=== PATIENT | female | born 1960 | race Caucasian/White ===

== ENCOUNTER 2020-02-12 20:21 | Inpatient (IN) | payer BC, OTHER ==
--- NOTE | 2020-02-12 21:12 | RAD ---
CHEST ONE VIEW: 02/12/20 HISTORY: Shortness of breath. COMPARISON: None. FINDINGS: Heart size is enlarged. Abnormal opacity along the right cardiophrenic junction. This was not seen on prior examinations. IMPRESSION: Large right cardiophrenic opacity. This may reflect a hernia or less likely a mass. Nonemergent follo w-up chest CT recommended. POS: HOME
[2020-02-12 21:23] LABS: #Eosinphils 0.1 thou/uL (0.0-0.7); #Lymphocytes 0.7 thou/uL (1.20-3.40); #Monocytes 0.6 thou/uL (0.11-0.59); #Neutrophils 7.3 thou/uL (1.40-6.50); %Basophils 0.4 % (0.0-1.0); %Eosinophils 1.6 % (0.0-10.0); %Lymphocytes 7.6 % (21.0-51.0); %Monocytes 7.2 % (0.0-10.0); %Neutrophils 83.2 % (42.0-75.0); Hemoglobin 11.1 g/dL (12.0-16.0); Mean Corpuscular Hemoglobin 29.9 pg (27.0-31.0); Mean Corpuscular Volume 90.4 fL (78.0-98.0); Mean Platelet Volume 7.1 fL (7.4-10.4); Platelet Count 294 thou/uL (130-400); RBC Distribution Width 12.9 % (11.5-14.5); Red Blood Cell (RBC) Count 3.72 mill/uL (4.20-5.40); White Blood Cell (WBC) Count 8.8 thou/uL (4.8-10.8)
[2020-02-12 21:45] LABS: ALT (SGPT) 16 U/L (8-55); AST (SGOT) 25 U/L (5-34); Acetaminophen Less than 6.0 mcg/mL (10.0-30.0); Albumin 3.9 g/dL (3.5-5.0); Alcohol Less than 10 mg/dL (Less than 10); Alkaline Phosphatase 47 U/L (40-110); Anion Gap 13 mmol/L (10-20); BUN (Urea Nitrogen) 21 mg/dL (9.8-20.1); Bilirubin, Total 0.4 mg/dL (0.2-1.2); Calc. Creatinine Clearance 0 mL/min (70-130); Calcium 9.1 mg/dL (7.8-10.44); Carbon Dioxide 25 mmol/L (22-29); Chloride 104 mmol/L (98-107); Estimated GFR-MDRD 68; Glucose 165 mg/dL (70-105); Magnesium 1.8 mg/dL (1.6-2.6); Potassium 3.9 mmol/L (3.5-5.1); Protein, Total 6.9 g/dL (6.0-8.3); Salicylate Less than 8.0 mg/dL (15.0-30.0); Sodium 138 mmol/L (136-145)
--- NOTE | 2020-02-12 22:00 | CT ---
CT head noncontrast HISTORY: Headache. Hypertension. COMPARISON: 06/11/2005. FINDINGS: Centered at the right cerebellar hemisphere is a lobular heterogeneous hyperdense fluid col lection that measures up to 3.7 cm x 2.7 cm greatest diameters on the axial images. It result in significant expansion of the right cerebellar hemisphere incompletely effaces the fourth ventricle. M oderate amount of surrounding vasogenic edema. Diffuse effacement of the cerebellar sulci and basilar cisterns. Mild diffuse effacement of the cereb ral sulci. Ventricles are not significantly dilated. IMPRESSION : Large right dentate nucleus hypertensive hematoma with complete compression of the fourth ventricle a nd diffuse cerebellar/cerebral edema. Findings were called to Dr. Borden in the emergency department at 2154 hours. Code CR.
[2020-02-12] MEDS ORDERED: niCARdipine 20MG In NaCl 20 MG/200 ML BAG ONE (22:05)
[2020-02-12] MEDS ORDERED: Propofol 500 MG/50 ML VIAL ONE (22:05)
[2020-02-12] MEDS ORDERED: Propofol 1,000 MG/100 ML VIAL IV ONE (22:07)
[2020-02-12] MEDS ORDERED: Dexamethasone 10 MG/ML VIAL ONE (22:07)
[2020-02-12] MEDS ORDERED: fentaNYL Citrate/PF 2,000 MCG in Sodium Chloride 0.9% 60 ML IV SCH (22:15)
[2020-02-12] MEDS ORDERED: Rocuronium Bromide 10 MG/ML (10ML VIAL) ONE (22:29)
--- NOTE | 2020-02-12 23:53 | CON ---
DATE OF CONSULTATION: HISTORY OF PRESENT ILLNESS: Ms. Cary is a 59-year-old woman, who presents to [facility] via EMS for altered mental status and "hypertensive emergency." Reportedly, the patient had experienced headache and some slight confusion at home with systolic pressure measured at home in the 200s. This resulted in a call for the EMS service. The patient arrived and showed continued degradation of her neurologic status. CT scan was ordered, which revealed a 3.5 cm in greatest diameter central to right hemispheric cerebellar hemorrhage with compression of the fourth ventricle. She is not on any blood thinners other than 81 mg aspirin. She does take p.r.n. Toradol and meloxicam, which may contribute to this as well. Of significant note, she did have a heart catheterization yesterday for increasing dyspnea on exertion and chest pain with no prior identification of heart disease other than hypertension. She is morbidly obese at 296 pounds or 134 kg. She does take several diabetic medications as well as medications for hypertension. Upon my arrival at bedside, the patient has now been intubated secondary to concerns over guarding of her airway given premorbid state and altered mental status. It is told to me by ER physician that the patient had roughly 9 or 10 Turlock coma score before intubation as she was following some commands with her bilateral upper extremities. As she has been intubated, she recently received rocuronium and my examination is thus essentially at this point. Systolic pressures are up in the 200s and Cardene is being initiated as I am re-examining her. ASSESSMENT: Acute cerebellar hemorrhage. PLAN: The patient will be admitted to the hospitalist service. Neurosurgery's recommendation at this time is noninterventional, however, that could certainly change. She does have some very early signs of potential ventricular enlargement and this will need to be monitored very closely. We will put in an order for CT scan around 2 o'clock in the morning for comparison. She will need to be monitored in the ICU with q.1 hour neuro checks. Recommendation for systolic pressure control under 140. We will reassess patient's condition in the morning. Currently, patient's prognosis is guarded, though at this time looks likely poor. Job ID: [id number]
[2020-02-13] MEDS ORDERED: manNITOL 20% 0 ML ONE ×2 (00:18→01:38)
[2020-02-13] MEDS ORDERED: Dexamethasone 10 MG/ML VIAL ONE (00:20)
[2020-02-13] MEDS ORDERED: Mannitol 12.5 GM/50 ML ONE (00:23)
[2020-02-13] MEDS ORDERED: MANNITOL IV SCH (00:30)
[2020-02-13] MEDS ORDERED: ADMIXTURE FEE IV SCH (00:30)
--- NOTE | 2020-02-13 00:30 | PDOC.HHP ---
Hospitalist HPI - History of Present Illness Headache History of Present Illness: 59-year-old morbidly obese woman with a history of hypertension and diabetes mellitus presented to the emergency department with a complaint of sudden onset of headache with associated nausea and vomiting. EMS found her with a systolic blood pressure as high as 210. Patient was given nitro paste en route to the ED. Her systolic blood pressure in the ED was down to 179. Patient was still complaining of headache and stuporous on arrival. Head CT done in the emergency department demonstrated large right dentate nucleus hematoma with complete compression of the fourth ventricle, diffuse cerebral and cerebellar edema. She was subsequently intubated in the ED and started on mechanical ventilation. Neurosurgery was informed recommended IV dexamethasone, IV Keppra and nicardipine drip to bring systolic blood pressure down to a target of less than 160. She was sedated with propofol during my examination. Patient is admitted to ICU for further management. Hospitalist ROS - Review of Systems ROS unobtainable: due to mental status - Medication Medications: Cannot obtain and verify home medications due to altered mental status. Hospitalist History - Past Medical History Cardiac: reports: HTN Other Medical History: Obesity, DM type II - Past Surgical History Other Surgical History: Colon resection, cholecystectomy, hernia x4, right knee surgery, appendectomy. - Family History Other Family History: Unable to obtain due to AMS. - Social History Smoking Status: Never smoker Alcohol: reports: None - Exam General - other findings: Sedated Eye: PERRL, anicteric sclera ENT: normocephalic atraumatic, no oropharyngeal lesions, moist mucosa Neck: supple, no JVD Heart: RRR, no murmur, no gallops Respiratory: CTAB, no wheezes, no rales, no ronchi Gastrointestinal: soft, non-tender, non-distended, normal bowel sounds Gastrointestinal - other findings: Obese Extremities: no cyanosis, no edema Skin: normal turgor, no rashes Neurological - other findings: No facial droop. Unable to examine motor or sensation Musculoskeletal: normal tone Psychiatric - other findings: Unresponsive. Hospitalist Results - Labs Result Diagrams: 02/12/20 21:12 02/12/20 21:12 Lab results: WBC 8.8 thou/uL (4.8-10.8) 02/12/20 21:12 Hgb 11.1 g/dL (12.0-16.0) L 02/12/20 21:12 Hct 33.6 % (36.0-47.0) L 02/12/20 21:12 MCV 90.4 fL (78.0-98.0) 02/12/20 21:12 Plt Count 294 thou/uL (130-400) 02/12/20 21:12 Neutrophils % 83.2 % (42.0-75.0) H 02/12/20 21:12 Sodium 138 mmol/L (136-145) 02/12/20 21:12 Potassium 3.9 mmol/L (3.5-5.1) 02/12/20 21:12 Chloride 104 mmol/L (98-107) 02/12/20 21:12 Carbon Dioxide 25 mmol/L (22-29) 02/12/20 21:12 BUN 21 mg/dL (9.8-20.1) H 02/12/20 21:12 Creatinine 0.86 mg/dL (0.6-1.1) 02/12/20 21:12 Glucose 165 mg/dL (70-105) H 02/12/20 21:12 Calcium 9.1 mg/dL (7.8-10.44) 02/12/20 21:12 Total Bilirubin 0.4 mg/dL (0.2-1.2) 02/12/20 21:12 AST 25 U/L (5-34) 02/12/20 21:12 ALT 16 U/L (8-55) 02/12/20 21:12 Alkaline Phosphatase 47 U/L (40-110) 02/12/20 21:12 Troponin I 0.011 ng/mL (< 0.028) 02/12/20 21:12 Serum Total Protein 6.9 g/dL (6.0-8.3) 02/12/20 21:12 Albumin 3.9 g/dL (3.5-5.0) 02/12/20 21:12 Lipase 18 U/L (8-78) 02/12/20 21:12 Hospitalist H&P A/P - Problem (1) Intracerebral bleed Code(s): I61.9 - NONTRAUMATIC INTRACEREBRAL HEMORRHAGE, UNSPECIFIED Status: Acute (2) Cerebral edema Code(s): G93.6 - CEREBRAL EDEMA Status: Acute (3) Malignant hypertension Code(s): I10 - ESSENTIAL (PRIMARY) HYPERTENSION Status: Acute (4) Morbid obesity Code(s): E66.01 - MORBID (SEVERE) OBESITY DUE TO EXCESS CALORIES Status: Acute (5) DM type 2 (diabetes mellitus, type 2) Status: Acute (6) Altered mental status Code(s): R41.82 - ALTERED MENTAL STATUS, UNSPECIFIED Status: Acute - Plan Plan: Admit patient to the ICU. Neurosurgery consulted. IV dexamethasone, IV Keppra as recommended by neurosurgery. IV hydration with normal saline. Nicardipine drip with target systolic blood pressure of less than 160. Repeat CT head per neurosurgery. Neurochecks. Keep n.p.o.. Prognosis guarded.
[2020-02-13 00:57] LABS: Bilirubin Negative (Negative); Blood, Urine Negative (Negative); Clarity Clear (Clear); Glucose, Urine (Dipstick) Greater than 1000 mg/dL (Negative); Ketone, Urine Negative (Negative); Leukocyte Negative Leu/uL (Negative); Nitrite Negative (Negative); Protein, Urine (Dipstick) 30 mg/dL (Neg-Trace); RBC/HPF None Seen HPF (0-3); Specific Gravity, Urine 1.012 (1.002-1.036); Squamous Epithelial None Seen HPF (0-3); Urobilinogen Normal mg/dL (Less than 2); WBC/HPF 0-3 HPF (0-3)
[2020-02-13 00:58] LABS: Bacteria/HPF 1+ HPF (None Seen)
[2020-02-13 00:59] LABS: Amphetamine Not Detected (NotDetected); Barbiturates Screen Not Detected (NotDetected); Benzodiazepine Screen Not Detected (NotDetected); Cocaine Metabolite Screen Not Detected (NotDetected); Medtox Control Line Valid? VALID (VALID); Medtox Reader # READER 4; Methadone Not Detected (NotDetected); Methamphetamine Not Detected (NotDetected); Opiate Screen Not Detected (NotDetected); Oxycodone Screen Not Detected (NotDetected); Phencyclidine (PCP) Not Detected (NotDetected); THC/Cannabinoid Screen Not Detected (NotDetected); Tricyclic Screen Not Detected (NotDetected)
[2020-02-13] MEDS ORDERED: Midazolam HCl 5 mg/ml Vial ONE (01:30)
[2020-02-13] MEDS ORDERED: Propofol 1,000 MG/100 ML VIAL IV ONE (01:47)
[2020-02-13] MEDS ORDERED: Propofol BOLUS 1,000 MG/100 ML VIAL IV PRN (02:30)
[2020-02-13] MEDS ORDERED: Fentanyl BOLUS 250 ML IVPB PRN (02:30)
[2020-02-13] MEDS ORDERED: Morphine 2 MG/ML VIAL SLOW IVP PRN (02:30)
[2020-02-13] MEDS: levETIRAcetam in NS 1,000 MG in Premix Bag 1 BAG IVPB SCH ×2 (03:55→04:08)
[2020-02-13] MEDS: niCARdipine 50 MG in Sodium Chloride 0.9% 250 ML 230 ML IV SCH ×2 (04:12→21:44)
[2020-02-13 04:16] LABS: Anion Gap 14 mmol/L (10-20); BUN (Urea Nitrogen) 21 mg/dL (9.8-20.1); Calc. Creatinine Clearance 148 mL/min (70-130); Calcium 8.4 mg/dL (7.8-10.44); Carbon Dioxide 22 mmol/L (22-29); Chloride 101 mmol/L (98-107); Estimated GFR-MDRD 65; Glucose 179 mg/dL (70-105); Potassium 4.4 mmol/L (3.5-5.1); Sodium 133 mmol/L (136-145)
--- NOTE | 2020-02-13 07:16 | PRG ---
DATE OF SERVICE: 02/13/2020 Ms. Cary is a 59-year-old female with numerous medical comorbidities including hypertension and morbid obesity. She presented to the ER with altered mental status yesterday. A CT examination showed a posterior fossa hemorrhage. Despite its size, there is no evidence of ventriculomegaly. She was electively intubated secondary to her size and concerns over sleep apnea. She was admitted to the ICU. I visited with her this morning where she remained stable and intubated. Her blood pressure is now under control. Off the sedation, she does follow commands and open eyes. Repeat CT examination performed over the course of the evening shows stable hemorrhage with some edema. I can see the 4th ventricle and there is no significant ventriculomegaly at this point in time. I spoke to her and relayed to him all the information I have. The plan at this point in time is one of nonsurgical management. We will be mindful of hydrocephalus as well as the potential for brainstem compression. Job ID: [id number]
--- NOTE | 2020-02-13 07:22 | CT ---
PRELIMINARY REPORT/[facility]/EMERGENCY AFTER HOURS PROCEDURE: EXAM: CT Head Without Intravenous Contrast. CLINICAL HISTORY: Follow up Intracerebral hemorrhagic stroke TECHNIQUE: Axial computed tomography images of the head/brain without intravenous contrast. COMPARISON: 02/12/2020 FINDINGS: BRAIN: There is no significant change in the right cerebellar hemorrhagic stroke. This has changed l ittle in size measuring approximately 3.8 x 3 cm on this study. There is some surrounding edematous change within the cerebellar hemisphere on the right. This does cause compression on the f ourth ventricle. No new hemorrhage, hematoma or infarction.. VENTRICLES: Compression of the fourth ventricle from a hemorrhagic stroke in the right cerebellum. T he remaining ventricles have a normal appearance. ORBITS: The orbits are unremarkable. SINUSES AND MASTOIDS: The paranasal sinuses and mastoid air cells are clear. SOFT TISSUES: No significant facial or scalp soft tissue swelling evident. No radiopaque foreign body is seen. BONES: No acute skull fracture. IMPRESSION: No significant change in the appearance of a hemorrhagic stroke in the right cerebellar r egion. This does cause mass-effect upon the fourth ventricle which is unchanged. Minimal surrounding edema is again noted and unchanged. ELECTRONICALLY SIGNED BY: Jailyn Talley DO Feb 13, 2020 2:25:14 AM [facility] HAND FINAL REPORT HEAD CT WITHOUT CONTRAST: HISTORY: Follow-up hemorrhagic stroke. COMPARISON: 02/12/2020. FINDINGS: Hemorrhage: Redemonstration of an intraparenchymal hemorrhage centered in the medial right cerebellar hemisphere. Currently, hemorrhage measures 3.9 x 3.2 cm. Associated peripheral edema. No new intraparenchymal or intracranial hemorrhage. Brain parenchyma: Cortical butler-white matter differentiation is preserved. No mass effect or midline shift. Basilar cisterns are patent. Ventricular system: Mass effect upon the 4th ventricle. No evidence of hydrocephalus. Calvarium: Intact. Sinuses and mastoid air cells: Adequate aeration. IMPRESSION: 1. This report is in agreement with initial report by [facility]. 2. Stable intraparenchymal hemorrhage in the right cerebellum. Stable associated edema. Stable mass effect upon the 4th ventricle without hydrocephalus. Transcribed Date/Time: 02/13/2020 7:38 AM
[2020-02-13 08:40] LABS: Actual Bicarbonate (HCO3a) 20.9 mEq/L (22-28); Base Excess (BEa) -2.6 mEq/L (-2.0 to +3.0); CO2 Tension 32.9 mmHg (35.0-45.0); Calcium, Ionized (arterial) 1.13 mmol/L (1.12-1.30); Carboxyhemoglobin (COHb) 0.4 gm% (0.0-3.0); Hemoglobin (Hb) 14.7 g/dL (12.0-16.0); O2 Tension (PaO2), arterial 93.6 mmHg (80.0-100.0); pH, Arterial 7.42 (7.35-7.45)
[2020-02-13 08:42] LABS: Puncture Site RBA
[2020-02-13 08:43] LABS: ALV-art Gradient 435.675 mmHg (0-20)
[2020-02-13] MEDS ORDERED: Dextrose 5% in Water 1,000 ML IV PRN (09:44)
[2020-02-13] MEDS ORDERED: Dextrose 50% Abboject 50 ML SYRINGE SLOW IVP PRN (09:44)
--- NOTE | 2020-02-13 10:49 | PRG ---
DATE OF SERVICE: 02/13/2020 Ms. Cary was admitted last night for acute cerebellar hemorrhage with compression of the 4th ventricle. At that time, she was intubated, but also apparently not quite obtunded, but rather altered and quite lethargic before intubation this morning. However, she quickly follows commands extremities. She does not open her eyes when spoken to, but tries to keep them close when I look at her eyes. Pupils are equal, round, and reactive to light. Extraocular movements all appear to be intact. Systolic pressures remain mostly stable in the 140s which is excellent. She received one dose of mannitol overnight and had transient increase in her urinary output, but this was stabilized around 100 mL an hour. Overall, I have encouraged by how things appear today, but her hemorrhage is still quite serious given size and location. We will continue to monitor along. Repeat scan overnight reveals stable hemorrhage in size as well as stable ventricular size. She will likely need to continue to remain in the ICU given the propensity for these types of hemorrhages to cause more rapid neurologic decline. We will continue to maintain only a medical mode of management given her current circumstances. Job ID: [id number]
[2020-02-13 11:03] LABS: SARS-CoV-2 MS2 Positive; SARS-CoV-2 N Gene Negative; SARS-CoV-2 S Gene Negative; SARS-CoV-2 by NAA Not Detected (NotDetected); SARS-CoV-2 orf1ab Negative
[2020-02-13] MEDS: Propofol 1,000 MG/100 ML VIAL IV PRN ×2 (12:32→21:59)
--- NOTE | 2020-02-13 13:05 | PDOC.HOSPP ---
- Subjective Encounter Date: 02/13/20 Encounter Time: 07:30 Subjective: Patient seen for follow-up regarding intracranial bleed. She is intubated, could not complete review of systems. - Objective Vital Signs & Weight: Vital Signs (12 hours) Temp Pulse Resp Pulse Ox 02/13/20 12:31 70 02/13/20 12:00 22 H 02/13/20 10:00 22 H 02/13/20 08:33 69 02/13/20 08:00 22 H 99 02/13/20 07:00 98.6 F 02/13/20 06:00 22 H 02/13/20 04:00 22 H 02/13/20 02:45 98 02/13/20 02:20 98.3 F Weight Weight 299 lb 1.971 oz Most Recent Monitor Data Heart Rate from ECG 71 NIBP 133/64 NIBP BP-Mean 87 Respiration from ECG 22 SpO2 98 I&O: 02/12/20 02/13/20 02/14/20 06:59 06:59 06:59 Intake Total 295.0 Output Total 1890 550 Balance -1595.0 -550 Result Diagrams: 02/12/20 21:12 02/13/20 03:39 Additional Labs: Accuchecks 02/13/20 09:59 POC Glucose 147 H Labs and MAR reviewed by me EKG Reviewed by me: Yes (Normal sinus rhythm on telemetry) Hospitalist ROS - Review of Systems ROS unobtainable: due to endotracheal tube - Medication Medications: Active Medications Generic Name Dose Route Start Last Admin Trade Name Freq PRN Reason Stop Dose Admin Nicardipine HCl 50 mg/ Sodium 250 mls @ 0 mls/hr 02/13/20 04:00 02/13/20 04:12 Chloride IV 250 mls INF IRIS Administration Protocol As Directed Propofol 1,000 mg 02/13/20 02:30 02/13/20 12:32 Propofol 1,000 Mg/100 Ml Vial IV 03/14/20 02:30 1,000 mg INF PRN Administration TO ACHIEVE GOAL RASS Protocol - Exam General - other findings: Morbid obesity Eye: anicteric sclera Neck - other findings: ETT Heart: RRR Respiratory: CTAB Gastrointestinal: soft Skin: no rashes Psychiatric - other findings: Unable to assess Hosp A/P - Plan -Assessment (1) Intracerebral bleed Code(s): I61.9 - NONTRAUMATIC INTRACEREBRAL HEMORRHAGE, UNSPECIFIED Status: Acute (2) Cerebral edema Code(s): G93.6 - CEREBRAL EDEMA Status: Acute (3) Altered mental status Code(s): R41.82 - ALTERED MENTAL STATUS, UNSPECIFIED Status: Acute (4) Malignant hypertension Code(s): I10 - ESSENTIAL (PRIMARY) HYPERTENSION Status: Acute (5) Morbid obesity Code(s): E66.01 - MORBID (SEVERE) OBESITY DUE TO EXCESS CALORIES Status: Chronic (6) DM type 2 (diabetes mellitus, type 2) Status: Chronic - Plan Neurosurgery consulted. Continue IV dexamethasone, IV Keppra as recommended by neurosurgery. Continue nicardipine drip with target systolic blood pressure of less than 160. No significant change on repeat CT head Neurochecks. Prognosis guarded.
[2020-02-13] MEDS: fentaNYL Citrate/PF 2,000 MCG in Sodium Chloride 0.9% 60 ML IV SCH (13:16)
[2020-02-13] MEDS ORDERED: Rocuronium Bromide 10 MG/ML (10ML VIAL) ONE (13:47)
[2020-02-13] MEDS: Lorazepam 2 MG/ML VIAL SLOW IVP PRN ×3 (14:06→22:57)
[2020-02-13] MEDS: Gabapentin 300 MG CAP PO SCH ×2 (14:07→20:27)
[2020-02-13] MEDS: metFORMIN 500 MG TAB PO SCH (16:26)
--- NOTE | 2020-02-13 17:54 | CON ---
DATE OF CONSULTATION: 02/13/2020 HISTORY OF PRESENT ILLNESS: Jenna Cary is a 59-year-old female without a change in mental status according to the . An ambulance was called. It started with a terrible headache and nausea and vomiting. She was on the floor in the bathroom vomiting and then he got her a trash can. She sat on the commode and then her mental status changed. She subsequently has been intubated. She is found to have a hemorrhagic cerebellar CVA. She has a history of hypertension. Her says she is mosque about taking all her medicines as she is supposed to. PAST MEDICAL HISTORY: Remarkable for hypertension and diabetes as well as obesity. There is no history of sleep apnea. PAST SURGICAL HISTORY: Remarkable for colon surgery, cholecystectomy, multiple hernia repairs, knee surgery and appendectomy. FAMILY HISTORY: Negative for lung disease in early age. SOCIAL HISTORY: She is not a smoker or drinker. REVIEW OF SYSTEMS: Not obtainable. PHYSICAL EXAMINATION: VITAL SIGNS: Heart rate 67, blood pressure 126/73, respiratory rates in the 20s. HEENT: Pupils react, sclerae is anicteric. She is all over the bed if she is not sedated. LUNGS: Clear. HEART: Regular rhythm. S1 and S2 are normal. ABDOMEN: Soft and nontender. EXTREMITIES: Without asymmetry or edema. LABORATORY DATA: White count 8.8, hemoglobin 11.1, platelets 294. Sodium 133, potassium 4.4, chloride 101, bicarb 22, BUN 21, and creatinine 0.9, glucose has been from 147 to 297 today. Liver enzymes are normal. IMPRESSION: 1. Cerebellar hemorrhage. 2. Respiratory failure with mechanical ventilation. Would not attempt extubation until we are sure her neurological status is stable. I met with the answered all his questions. CRITICAL CARE TIME: 30 minutes. Job ID: [id number] MTDD
[2020-02-13] MEDS: HumaLOG 300 UNITS/3 ML VIAL SC PRN (21:48)
[2020-02-14] MEDS: Propofol 1,000 MG/100 ML VIAL IV PRN (05:56)
--- NOTE | 2020-02-14 08:00 | PDOC.HOSPP ---
- Subjective Encounter Date: 02/14/20 Encounter Time: 07:54 Subjective: intubated, sedated - Objective Vital Signs & Weight: Vital Signs (12 hours) Temp Pulse Resp BP Pulse Ox 02/14/20 07:41 54 L 128/65 02/14/20 06:00 22 H 02/14/20 04:00 98.6 F 22 H 96 02/14/20 02:00 22 H 02/14/20 01:00 98.8 F 02/14/20 00:00 22 H 02/13/20 22:00 22 H 02/13/20 20:00 98.8 F 22 H 96 Weight Admit Weight 299 lb Weight 300 lb 4.313 oz Most Recent Monitor Data Heart Rate from ECG 53 NIBP 116/65 NIBP BP-Mean 82 Respiration from ECG 22 SpO2 95 I&O: 02/13/20 02/14/20 02/15/20 06:59 06:59 06:59 Intake Total 295.0 1037 Output Total 1890 1795 Balance -1595.0 -758 Result Diagrams: 02/12/20 21:12 02/13/20 03:39 Additional Labs: Accuchecks 02/14/20 02/13/20 02/13/20 05:55 21:47 09:59 POC Glucose 118 H 154 H 147 H Hospitalist ROS - Medication Medications: Active Medications Generic Name Dose Route Start Last Admin Trade Name Freq PRN Reason Stop Dose Admin Gabapentin 1,200 mg 02/13/20 15:00 02/13/20 20:27 Gabapentin 300 Mg Cap PO 1,200 mg TID IRIS Administration Fentanyl Citrate 2,000 mcg/ 100 mls @ 0 mls/hr 02/13/20 02:30 02/13/20 13:16 Sodium Chloride IV 03/14/20 02:30 100 mls INF IRIS Administration Protocol Per Protocol Nicardipine HCl 50 mg/ Sodium 250 mls @ 0 mls/hr 02/13/20 04:00 02/13/20 21:44 Chloride IV 250 mls INF IRIS Administration Protocol As Directed Insulin Human Lispro 0 units 02/13/20 09:44 02/13/20 21:48 Humalog 300 Units/3 Ml Vial SC 2 unit .MILD SLIDING SCALE PRN Administration Mild Correctional Scale Lorazepam 2 mg 02/13/20 02:30 02/13/20 22:57 Lorazepam 2 Mg/Ml Vial SLOW IVP 03/14/20 02:30 2 mg Q1H PRN Administration Breakthrough agitation Metformin HCl 1,000 mg 02/13/20 17:00 02/13/20 16:26 Metformin 500 Mg Tab PO 1,000 mg BID-WM IRIS Administration Metoprolol Succinate 100 mg 02/13/20 21:00 02/13/20 20:27 Metoprolol Succinate Xl 100 Mg Tab PO 100 mg BID IRIS Administration Propofol 1,000 mg 02/13/20 02:30 02/14/20 05:56 Propofol 1,000 Mg/100 Ml Vial IV 03/14/20 02:30 1,000 mg INF PRN Administration TO ACHIEVE GOAL RASS Protocol - Exam Neck: no JVD Heart: RRR, no murmur Respiratory: CTAB Gastrointestinal: soft, non-distended, normal bowel sounds Extremities: 1+ LE edema Neurological - other findings: PERRL, DTRs hyperreflexic Hosp A/P (1) Cerebellar hemorrhage, acute Code(s): I61.4 - NONTRAUMATIC INTRACEREBRAL HEMORRHAGE IN CEREBELLUM Status: Acute (2) Hypertensive crisis Code(s): I16.9 - HYPERTENSIVE CRISIS, UNSPECIFIED Status: Acute (3) Encephalopathy acute Code(s): G93.40 - ENCEPHALOPATHY, UNSPECIFIED Status: Acute (4) DM type 2 (diabetes mellitus, type 2) Status: Acute Qualifiers: Diabetes mellitus fpc insulin use: without fpc use Diabetes mellitus complication status: without complication Qualified Code(s): E11.9 - Type 2 diabetes mellitus without complications - Plan on ventilator iv cardene for BP control maintenence fluid discuss with NS accu/ss
--- NOTE | 2020-02-14 08:39 | PRG ---
DATE OF SERVICE: 02/14/2020 Ms. Cary is on the third day of her hospital stay for acute intracerebellar hemorrhage with compression of 4th ventricle. She has over the first 24 hours made gradual improvement from a neurologic state. As of this morning, she is actually much, much better, is briskly following commands in all 4 extremities, opens her eyes when requested, fights the tube consistently, but has not reached a point where she is quite alert enough to consider extubation. Pressures have been in the 120s. Cardene was turned off this morning around 3 a.m. Urinary output has been in the 20s to 50s hourly and Kwan is still in place. From our perspective, we will continue to maintain the approach of nonsurgical management as she has continued to make steady neurologic progress in terms of her recovery, though when she will have the development of perihemorrhagic edema and will need to continue to be watched for possible development of hydrocephalus. We will hold off on any imaging unless she has a deterioration neurologically, but at this time, I am encouraged by the progress she has made in 48 hours. We will continue to follow along. Job ID: [id number]
[2020-02-14 08:48] LABS: #Eosinphils 0.1 thou/uL (0.0-0.7); #Lymphocytes 1.4 thou/uL (1.20-3.40); #Monocytes 0.8 thou/uL (0.11-0.59); #Neutrophils 6.9 thou/uL (1.40-6.50); %Basophils 0.3 % (0.0-1.0); %Eosinophils 0.6 % (0.0-10.0); %Lymphocytes 15.5 % (21.0-51.0); %Monocytes 8.3 % (0.0-10.0); %Neutrophils 75.4 % (42.0-75.0); Hemoglobin 10.2 g/dL (12.0-16.0); Mean Corpuscular HGB CONC 32.1 g/dL (32.0-36.0); Mean Corpuscular Hemoglobin 28.6 pg (27.0-31.0); Mean Corpuscular Volume 89.2 fL (78.0-98.0); Mean Platelet Volume 7.4 fL (7.4-10.4); Platelet Count 356 thou/uL (130-400); RBC Distribution Width 13.4 % (11.5-14.5); Red Blood Cell (RBC) Count 3.56 mill/uL (4.20-5.40); White Blood Cell (WBC) Count 9.1 thou/uL (4.8-10.8)
[2020-02-14] MEDS: Gabapentin 300 MG CAP PO SCH ×3 (08:48→20:20)
[2020-02-14] MEDS: Pioglitazone HCl 15 MG TAB PO SCH (08:48)
[2020-02-14] MEDS: FLUoxetine HCl 20 MG CAP PO SCH (08:49)
[2020-02-14] MEDS: Fenofibrate Nanocrystallized 145 MG TAB PO SCH (08:49)
[2020-02-14] MEDS: Sodium Chloride 0.9% 1,000 ML IV SCH ×2 (08:50→22:49)
[2020-02-14] MEDS: fentaNYL Citrate/PF 2,000 MCG in Sodium Chloride 0.9% 60 ML IV SCH (08:55)
[2020-02-14 08:57] LABS: Hemoglobin A1c 6.3 % (4.0-6.0)
[2020-02-14 09:10] LABS: Anion Gap 16 mmol/L (10-20); BUN (Urea Nitrogen) 40 mg/dL (9.8-20.1); Calc. Creatinine Clearance 107 mL/min (70-130); Carbon Dioxide 23 mmol/L (22-29); Chloride 105 mmol/L (98-107); Estimated GFR-MDRD 44; Glucose 113 mg/dL (70-105); Potassium 3.6 mmol/L (3.5-5.1); Sodium 140 mmol/L (136-145)
[2020-02-14] MEDS: Bupropion 150 MG XL TAB PO SCH (10:12)
[2020-02-14] MEDS: metFORMIN 500 MG TAB PO SCH (12:18)
[2020-02-14] MEDS: hydrALAZINE 20 MG/ML VIAL SLOW IVP PRN (18:06)
[2020-02-14] MEDS: Labetalol HCl 100 MG/20 ML VIAL SLOW IVP PRN (20:13)
--- NOTE | 2020-02-14 20:19 | PRG ---
DATE OF SERVICE: 02/14/2020 SUBJECTIVE: Jenna Cary had spontaneous breathing trial today. Sedation was held with the exception of Precedex. She was cooperative with spontaneous breathing trial. She did well. She passed a leak test. OBJECTIVE: VITAL SIGNS: Blood pressure 165/86, heart rate in the 60s, respiratory rates in the teens. LUNGS: Clear. HEART: Regular rhythm. ABDOMEN: Soft. EXTREMITIES: Without asymmetry. LABORATORY DATA: White count 9.1, hemoglobin 10.2, platelets 356. Electrolytes are unremarkable. BUN 40, creatinine 1.25. IMPRESSION: Status post intubation for altered mental status. In reviewing the ER records, she had a Clyde Coma scale of 8 when she was intubated. They were worried that she would get worse, so they intubated her early. I felt it was reasonable to extubate her today to see how she did. She did well with an excellent cough after extubation. She is not having any stridor. She sleeps with CPAP at home, so we will place her on BiPAP here whenever she sleeps and p.r.n. Job ID: [id number]
[2020-02-14] MEDS ORDERED: Acetaminophen 325 MG TAB PO SCH (23:45)
[2020-02-15] MEDS: hydrALAZINE 20 MG/ML VIAL SLOW IVP PRN ×2 (00:59→11:09)
[2020-02-15] MEDS: niCARdipine 50 MG in Sodium Chloride 0.9% 250 ML 230 ML IV SCH ×4 (01:47→22:02)
[2020-02-15] MEDS: Labetalol HCl 100 MG/20 ML VIAL SLOW IVP PRN ×2 (03:03→12:12)
[2020-02-15] MEDS ORDERED: traMADol HCl 50 MG TAB PO SCH (04:00)
[2020-02-15 05:18] LABS: Band 4 % (5-11); Eosinophils 2 % (0-10); Hemoglobin 10.6 g/dL (12.0-16.0); Lymphocytes 14 % (21-51); MDiff Complete? YES; Mean Corpuscular HGB CONC 32.2 g/dL (32.0-36.0); Mean Corpuscular Hemoglobin 28.8 pg (27.0-31.0); Mean Corpuscular Volume 89.5 fL (78.0-98.0); Mean Platelet Volume 7.1 fL (7.4-10.4); Monocytes 6 % (0-10); Neutrophil 74 % (42-75); Platelet Count 358 thou/uL (130-400); Platelet Morphology Comment Appears Adequate; Red Blood Cell (RBC) Count 3.68 mill/uL (4.20-5.40); White Blood Cell (WBC) Count 9.1 thou/uL (4.8-10.8)
[2020-02-15 05:31] LABS: Anion Gap 17 mmol/L (10-20); BUN (Urea Nitrogen) 34 mg/dL (9.8-20.1); Calc. Creatinine Clearance 145 mL/min (70-130); Calcium 8.7 mg/dL (7.8-10.44); Carbon Dioxide 21 mmol/L (22-29); Chloride 106 mmol/L (98-107); Estimated GFR-MDRD 63; Glucose 133 mg/dL (70-105); Potassium 4.1 mmol/L (3.5-5.1); Sodium 140 mmol/L (136-145)
--- NOTE | 2020-02-15 07:53 | PRG ---
DATE OF SERVICE: 02/15/2020 Ms. Cary looks great this morning. She was extubated late yesterday. She is wearing a BiPAP mask. She is awake, alert, oriented, and follows commands well with all 4 extremities. We will keep her in the ICU until our respiratory colleagues feel she is safe to move out from a respiratory perspective. The Neurosurgical Service will continue to follow along loosely. I foresee no need for surgical intervention at this time. Job ID: [id number]
--- NOTE | 2020-02-15 07:54 | PDOC.HOSPP ---
- Subjective Encounter Date: 02/15/20 Encounter Time: 07:53 Subjective: extubated, awake - Objective Vital Signs & Weight: Vital Signs (12 hours) Temp Pulse BP Pulse Ox 02/15/20 07:00 98.6 F 02/15/20 06:59 70 02/15/20 04:00 98.7 F 02/15/20 03:03 76 164/90 H 02/15/20 03:00 98.7 F 02/15/20 00:59 76 165/84 H 02/15/20 00:00 97.9 F 02/14/20 22:00 76 02/14/20 20:13 73 154/80 H 02/14/20 20:00 98.2 F 92 L Weight Admit Weight 299 lb Weight 300 lb 7.841 oz Most Recent Monitor Data Heart Rate from ECG 73 NIBP 143/76 NIBP BP-Mean 98 Respiration from ECG 12 SpO2 90 I&O: 02/14/20 02/15/20 02/16/20 06:59 06:59 06:59 Intake Total 1037 2945.6 Output Total 1795 1471 100 Balance -758 1474.6 -100 Result Diagrams: 02/15/20 04:50 02/15/20 04:50 Additional Labs: Accuchecks 02/15/20 02/14/20 02/14/20 00:17 17:03 11:23 POC Glucose 143 H 124 H 99 02/13/20 16:04 POC Glucose 137 H Radiology Reviewed by me: Yes (cxr- Bilat effusion vs infiltrate) Hospitalist ROS - Medication Medications: Active Medications Generic Name Dose Route Start Last Admin Trade Name Freq PRN Reason Stop Dose Admin Bupropion HCl 300 mg 02/14/20 09:00 02/14/20 10:12 Bupropion 150 Mg Xl Tab PO Not Given DAILY IRIS Diltiazem HCl 180 mg 02/14/20 09:00 02/14/20 09:13 Diltiazem Hcl Cd 180 Mg Capsule PO 180 mg DAILY IRIS Administration Fenofibrate 145 mg 02/14/20 09:00 02/14/20 08:49 Fenofibrate Nanocrystallized 145 Mg Tab PO 145 mg DAILY IRIS Administration Fluoxetine HCl 40 mg 02/14/20 09:00 02/14/20 08:49 Fluoxetine Hcl 20 Mg Cap PO 40 mg DAILY IRIS Administration Gabapentin 1,200 mg 02/13/20 15:00 02/14/20 20:20 Gabapentin 300 Mg Cap PO 1,200 mg TID IRIS Administration Hydralazine HCl 20 mg 02/14/20 16:15 02/15/20 00:59 Hydralazine 20 Mg/Ml Vial SLOW IVP 20 mg Q6H PRN Administration SBP GREATER THAN 160 Nicardipine HCl 50 mg/ Sodium 250 mls @ 0 mls/hr 02/13/20 04:00 02/15/20 01:47 Chloride IV 250 mls INF IRIS Administration Protocol As Directed Sodium Chloride 1,000 mls @ 75 mls/hr 02/14/20 08:15 02/14/20 22:49 Normal Saline 0.9% IV 1,000 mls .[id number] IRIS Administration Dexmedetomidine HCl 400 mcg/ 100 mls @ 0 mls/hr 02/14/20 12:00 02/14/20 12:42 Sodium Chloride IVPB 100 mls INF IRIS Administration Protocol Titrate Insulin Human Lispro 0 units 02/13/20 09:44 02/13/20 21:48 Humalog 300 Units/3 Ml Vial SC 2 unit .MILD SLIDING SCALE PRN Administration Mild Correctional Scale Labetalol HCl 10 mg 02/14/20 16:12 02/15/20 03:03 Labetalol Hcl 100 Mg/20 Ml Vial SLOW IVP 10 mg Q6H PRN Administration SBP Greater Than 180 Metoprolol Succinate 100 mg 02/13/20 21:00 02/14/20 20:21 Metoprolol Succinate Xl 100 Mg Tab PO 100 mg BID IRIS Administration Niacin 1,000 mg 02/14/20 09:00 02/14/20 08:49 Niacin Er 500 Mg Tab PO 1,000 mg DAILY IRIS Administration Pioglitazone HCl 30 mg 02/14/20 09:00 02/14/20 08:48 Pioglitazone Hcl 15 Mg Tab PO 30 mg DAILY IRIS Administration - Exam Neck: no JVD Heart: RRR, no murmur Respiratory - other findings: difficult exam, do not hear any post focal rales, etc Gastrointestinal: soft, non-distended, normal bowel sounds Extremities: 1+ LE edema Hosp A/P (1) Cerebellar hemorrhage, acute Code(s): I61.4 - NONTRAUMATIC INTRACEREBRAL HEMORRHAGE IN CEREBELLUM Status: Acute (2) Hypertensive crisis Code(s): I16.9 - HYPERTENSIVE CRISIS, UNSPECIFIED Status: Acute (3) Encephalopathy acute Code(s): G93.40 - ENCEPHALOPATHY, UNSPECIFIED Status: Acute (4) DM type 2 (diabetes mellitus, type 2) Status: Acute Qualifiers: Diabetes mellitus senior care insulin use: without termite inspector use Diabetes mellitus complication status: without complication Qualified Code(s): E11.9 - Type 2 diabetes mellitus without complications (5) PNA (pneumonia) Code(s): J18.9 - PNEUMONIA, UNSPECIFIED ORGANISM Status: Acute - Plan PT/OT iv cardene for BP control abnormal CXR- volume overload vs PNA discussed with stock pitcher Tx for PNA DC NS, ECHO, BNP accu/ss
--- NOTE | 2020-02-15 08:19 | RAD ---
XR Chest 1 View Portable History: Ventilated patient Comparison: Radiograph February 12, 2020 Findings: Large right and moderate left layering effusion. Heart size is enlarged. No pneumothorax. F ullness of the vascular pedicle. Impression: Enlarging pleural effusions.
[2020-02-15] MEDS: cefTRIAXone\\ROCEPHIN 2 GM in Sodium Chloride 0.9% 100 ML IVPB SCH (08:40)
[2020-02-15] MEDS: Bupropion 150 MG XL TAB PO SCH (08:41)
[2020-02-15] MEDS: Pioglitazone HCl 15 MG TAB PO SCH (08:42)
[2020-02-15] MEDS: FLUoxetine HCl 20 MG CAP PO SCH (08:42)
[2020-02-15] MEDS: Gabapentin 300 MG CAP PO SCH ×3 (08:43→20:01)
[2020-02-15] MEDS: Fenofibrate Nanocrystallized 145 MG TAB PO SCH (08:45)
[2020-02-15] MEDS: Ondansetron PF 4 MG/2 ML Vial IVP PRN ×2 (12:31→20:02)
[2020-02-15] MEDS: traMADol HCl 50 MG TAB PO PRN ×2 (14:07→20:03)
--- NOTE | 2020-02-15 14:27 | PRG ---
DATE OF SERVICE: 02/15/2020 SUBJECTIVE: Ms. Cary remains hemodynamically stable. She is adequately protecting her airway. She is in no distress. OBJECTIVE: VITAL SIGNS: Heart rate is in the 60s, blood pressure 153/85, respiratory rate is 20, oximetry is 100%. LUNGS: Clear. HEART: Regular rhythm. ABDOMEN: Soft. Her brought her CPAP up here. LABORATORY DATA: White count 9.1, hemoglobin 10.6, platelets 358. Electrolytes are unremarkable. Creatinine is 0.9. IMPRESSION: Respiratory failure after cerebellar bleed. She has a headache. We will need to watch for obstructive hydrocephalus. She can use her home CPAP with O2 titrated to a saturation of 90% to 94%. Job ID: [id number]
[2020-02-15] MEDS ORDERED: hydrALAZINE 25 MG TAB PO SCH (16:00)
[2020-02-15] MEDS: hydrALAZINE 25 MG TAB PO SCH (20:02)
[2020-02-16] MEDS: niCARdipine 50 MG in Sodium Chloride 0.9% 250 ML 230 ML IV SCH ×3 (01:31→10:22)
[2020-02-16 05:26] LABS: Anion Gap 15 mmol/L (10-20); BUN (Urea Nitrogen) 36 mg/dL (9.8-20.1); Calc. Creatinine Clearance 125 mL/min (70-130); Calcium 8.6 mg/dL (7.8-10.44); Carbon Dioxide 24 mmol/L (22-29); Chloride 104 mmol/L (98-107); Estimated GFR-MDRD 53; Glucose 156 mg/dL (70-105); Potassium 4.1 mmol/L (3.5-5.1); Sodium 139 mmol/L (136-145)
[2020-02-16 05:28] LABS: Band 5 % (5-11); Hemoglobin 10.9 g/dL (12.0-16.0); Lymphocytes 16 % (21-51); MDiff Complete? YES; Mean Corpuscular HGB CONC 31.6 g/dL (32.0-36.0); Mean Corpuscular Volume 91.7 fL (78.0-98.0); Mean Platelet Volume 8.5 fL (7.4-10.4); Neutrophil 79 % (42-75); Platelet Count 294 thou/uL (130-400); RBC Distribution Width 13.4 % (11.5-14.5); Red Blood Cell (RBC) Count 3.75 mill/uL (4.20-5.40); White Blood Cell (WBC) Count 11.1 thou/uL (4.8-10.8)
[2020-02-16] MEDS: Bupropion 150 MG XL TAB PO SCH (08:32)
[2020-02-16] MEDS: Gabapentin 300 MG CAP PO SCH ×3 (08:33→21:57)
[2020-02-16] MEDS: hydrALAZINE 25 MG TAB PO SCH ×3 (08:34→21:51)
[2020-02-16] MEDS: FLUoxetine HCl 20 MG CAP PO SCH (08:34)
--- NOTE | 2020-02-16 08:41 | PRG ---
DATE OF SERVICE: 02/16/2020 SUBJECTIVE: Ms. Cary used her home BiPAP last night, but has been able to remove it this morning. She states that she hurts all over, but this is apparently a chronic complaint. She had some vomiting last night, but reports thirst this morning. We will see if we can gradually get her onto some oral nutrition. She is still on Cardene for blood pressure control and similarly, we will try to get her onto oral therapy today. OBJECTIVE: VITAL SIGNS: Blood pressure today 146/77, heart rate is 65, saturation is in the mid 90s on both BiPAP and then onto nasal cannula at 5 L. GENERAL: She is awake, slightly sleepy, but arousable. She denies pain. NECK: Shows no adenopathy. She has decent strength and muscle symmetry bilaterally. LUNGS: Clear. HEART: Regular rate and rhythm. ABDOMEN: Obese. There is no organomegaly. EXTREMITIES: She has 1+ edema without cords. LABORATORY DATA: White count this morning 11,100, hemoglobin is 10.9, hematocrit of 34.4, platelet count 294,000. Electrolytes include sodium 139, potassium 4.1, chloride 104, CO2 is 24, BUN 36, creatinine 1.07. IMPRESSION: 1. Right cerebellar bleed. 2. Hypertension. 3. Obesity. BMI of 46. 4. Obstructive sleep apnea, on home CPAP therapy. PLAN: We will try to advance her diet as tolerated and get her onto oral regimen. It is unclear from the chart her regular medications and she cannot name them. We will try to get a list, but in the absence of that, we will start labetalol. She could be transferred to the floor if we were able to get her blood pressure adequately controlled. Job ID: [id number]
[2020-02-16] MEDS: cefTRIAXone\\ROCEPHIN 2 GM in Sodium Chloride 0.9% 100 ML IVPB SCH (08:42)
[2020-02-16] MEDS: Fenofibrate Nanocrystallized 145 MG TAB PO SCH (08:53)
[2020-02-16] MEDS: Pioglitazone HCl 15 MG TAB PO SCH (08:53)
[2020-02-16] MEDS: traMADol HCl 50 MG TAB PO PRN (08:55)
--- NOTE | 2020-02-16 08:57 | RAD ---
CHEST 1 VIEW: Date: 02/16/2020 INDICATION: History of intubation. COMPARISON: Prior exam dated 02/15/2020. FINDINGS: There is cardiomegaly with pulmonary vascular congestion. There is persistent bibasilar air space dis ease, right greater than left. No pneumothorax is evident. IMPRESSION: Stable exam. POS: BH
[2020-02-16] MEDS: Labetalol HCl 100 MG/20 ML VIAL SLOW IVP PRN (09:33)
[2020-02-16] MEDS ORDERED: Fioricet 325/50/40 mg Tablet PO SCH (11:45)
[2020-02-16] MEDS ORDERED: Fioricet 325/50/40 mg Tablet PO PRN (11:55)
[2020-02-16] MEDS: HumaLOG 300 UNITS/3 ML VIAL SC PRN (12:41)
[2020-02-16] MEDS: Ondansetron PF 4 MG/2 ML Vial IVP PRN ×2 (12:43→18:29)
--- NOTE | 2020-02-16 13:30 | CT ---
CT Brain WO Con: 02/16/2020 1:10 PM CLINICAL HISTORY: Follow-up intracranial hemorrhage. IMAGING TECHNIQUE: Multiple CT images were obtained of the brain without IV contrast. COMPARISON: February 13, 2020 FINDINGS: BRAIN: Evidence of acute infarct: None. Evidence of chronic ischemic change:None. Evidence of intracranial hemorrhage: The right cerebellar hemisphere intraparenchymal hemorrhage is largely stable when accounting for slight differences in technique. The hemorrhage measures approximately 4.4 x 3.2 cm where previously measured approximately 4.7 x 3.8 cm on the prior exam. Th ere is mild surrounding vasogenic edema and mass effect on the fourth ventricle that appears similar. Mild narrowing of the basilar cisterns appear similar. No hydrocephalus is evident. Evidence of brain volume loss:There is mild generalized cerebral atrophy. Evidence of midline shift: Third ventricle and septum pellucidum are midline. Ventricles: Normal. No hydrocephalus. SKULL: Intact. VISUALIZED PARANASAL SINUSES: Clear. MASTOID AIR CELLS: Clear. EXTRACRANIAL SOFT TISSUES: Normal. IMPRESSION: Stable CT examination of the brain. There is stable right cerebellar hemisphere intraparenchymal hem orrhage with surrounding vasogenic edema inducing mass effect on the fourth ventricle. There is some stable mild narrowing of the basilar cisterns, particularly the prepontine cistern. No hydroceph alus is present.
[2020-02-16] MEDS: Morphine 2 MG/ML VIAL SLOW IVP PRN ×2 (14:29→18:29)
--- NOTE | 2020-02-16 16:57 | PDOC.HOSPP ---
- Subjective Encounter Date: 02/16/20 Subjective: Patient is complaining of severe headache. - Objective Vital Signs & Weight: Vital Signs (12 hours) Pulse BP 02/16/20 14:24 65 118/44 L 02/16/20 09:33 70 143/54 H 02/16/20 08:34 66 125/66 Weight Admit Weight 299 lb Weight 306 lb 12.8 oz Most Recent Monitor Data Heart Rate from ECG 65 NIBP 129/67 NIBP BP-Mean 87 Respiration from ECG 14 SpO2 97 I&O: 02/15/20 02/16/20 02/17/20 06:59 06:59 06:59 Intake Total 2945.6 1732 Output Total 1471 1230 Balance 1474.6 502 Result Diagrams: 02/16/20 04:40 02/16/20 04:40 Additional Labs: Accuchecks 02/16/20 02/16/20 02/16/20 16:02 12:31 05:56 POC Glucose 109 H 155 H 133 H 02/15/20 02/15/20 21:01 16:50 POC Glucose 139 H 145 H Hospitalist ROS - Medication Medications: Active Medications Generic Name Dose Route Start Last Admin Trade Name Freq PRN Reason Stop Dose Admin Bupropion HCl 300 mg 02/14/20 09:00 02/16/20 08:32 Bupropion 150 Mg Xl Tab PO 300 mg DAILY IRIS Administration Diltiazem HCl 180 mg 02/14/20 09:00 02/16/20 08:32 Diltiazem Hcl Cd 180 Mg Capsule PO 180 mg DAILY IRIS Administration Fenofibrate 145 mg 02/14/20 09:00 02/16/20 08:53 Fenofibrate Nanocrystallized 145 Mg Tab PO 145 mg DAILY IRIS Administration Fluoxetine HCl 40 mg 02/14/20 09:00 02/16/20 08:34 Fluoxetine Hcl 20 Mg Cap PO 40 mg DAILY IRIS Administration Gabapentin 1,200 mg 02/13/20 15:00 02/16/20 14:23 Gabapentin 300 Mg Cap PO 1,200 mg TID IRIS Administration Hydralazine HCl 20 mg 02/14/20 16:15 02/15/20 11:09 Hydralazine 20 Mg/Ml Vial SLOW IVP 20 mg Q6H PRN Administration SBP GREATER THAN 160 Hydralazine HCl 50 mg 02/15/20 21:00 02/16/20 14:24 Hydralazine 25 Mg Tab PO 50 mg TID IRIS Administration Nicardipine HCl 50 mg/ Sodium 250 mls @ 0 mls/hr 02/13/20 04:00 02/16/20 10:22 Chloride IV 250 mls INF IRIS Administration Protocol As Directed Ceftriaxone Sodium 2 gm/ 100 mls @ 200 mls/hr 02/15/20 08:00 02/16/20 08:42 Sodium Chloride IVPB 100 mls Q24HR IRIS Administration Insulin Human Lispro 0 units 02/13/20 09:44 02/16/20 12:41 Humalog 300 Units/3 Ml Vial SC 2 unit .MILD SLIDING SCALE PRN Administration Mild Correctional Scale Labetalol HCl 10 mg 02/14/20 16:12 02/16/20 09:33 Labetalol Hcl 100 Mg/20 Ml Vial SLOW IVP 10 mg Q6H PRN Administration SBP Greater Than 180 Metoprolol Succinate 100 mg 02/13/20 21:00 02/16/20 08:33 Metoprolol Succinate Xl 100 Mg Tab PO 100 mg BID IRIS Administration Morphine Sulfate 2 mg 02/16/20 14:03 02/16/20 14:29 Morphine 2 Mg/Ml Vial SLOW IVP 2 mg Q1H PRN Administration Severe Pain (7-10) Niacin 1,000 mg 02/14/20 09:00 02/16/20 08:33 Niacin Er 500 Mg Tab PO 1,000 mg DAILY IRIS Administration Ondansetron HCl 4 mg 02/15/20 12:19 02/16/20 12:43 Ondansetron Pf 4 Mg/2 Ml Vial IVP 4 mg Q4H PRN Administration Nausea/Vomiting Pioglitazone HCl 30 mg 02/14/20 09:00 02/16/20 08:53 Pioglitazone Hcl 15 Mg Tab PO 30 mg DAILY IRIS Administration Tramadol HCl 50 mg 02/15/20 13:24 02/16/20 08:55 Tramadol Hcl 50 Mg Tab PO 50 mg Q6H PRN Administration Headache - Exam General Appearance: awake alert ENT: normocephalic atraumatic Neck: supple, no JVD Heart: RRR Respiratory: normal chest expansion, no tachypnea Neurological: cranial nerve grossly intact, no focal deficits Hosp A/P (1) Headache Code(s): R51.9 - HEADACHE, UNSPECIFIED Status: Acute (2) Cerebellar hemorrhage, acute Code(s): I61.4 - NONTRAUMATIC INTRACEREBRAL HEMORRHAGE IN CEREBELLUM Status: Acute (3) Cerebral edema Code(s): G93.6 - CEREBRAL EDEMA Status: Acute (4) DM type 2 (diabetes mellitus, type 2) Status: Acute Qualifiers: Diabetes mellitus terminal clerk insulin use: without terminal clerk use Diabetes mellitus complication status: without complication Qualified Code(s): E11.9 - Type 2 diabetes mellitus without complications - Plan The patient's blood pressure is now controlled on oral agents. She is complaining of severe headache and photosensitivity this morning. Repeat CT scan of the head did not show any worsening in her findings. Start oral Fioricet every 4 hours as needed for pain.
[2020-02-16] MEDS: hydrALAZINE 20 MG/ML VIAL SLOW IVP PRN (17:29)
[2020-02-16] MEDS: HYDROcodone/Acetaminophen 5/325 mg Tablet PO PRN (21:35)
[2020-02-17] MEDS: Labetalol HCl 100 MG/20 ML VIAL SLOW IVP PRN ×3 (05:00→16:58)
[2020-02-17] MEDS: Acetaminophen/Codeine 30-300mg Tablet PO PRN (05:01)
[2020-02-17 06:01] LABS: Anion Gap 16 mmol/L (10-20); BUN (Urea Nitrogen) 21 mg/dL (9.8-20.1); Calc. Creatinine Clearance 184 mL/min (70-130); Carbon Dioxide 24 mmol/L (22-29); Chloride 102 mmol/L (98-107); Estimated GFR-MDRD 81; Glucose 117 mg/dL (70-105); Potassium 4.1 mmol/L (3.5-5.1); Sodium 138 mmol/L (136-145)
[2020-02-17 06:05] LABS: Band 3 % (5-11); Hemoglobin 11.1 g/dL (12.0-16.0); Lymphocytes 8 % (21-51); MDiff Complete? YES; Mean Corpuscular HGB CONC 30.4 g/dL (32.0-36.0); Mean Corpuscular Hemoglobin 27.3 pg (27.0-31.0); Mean Corpuscular Volume 89.8 fL (78.0-98.0); Mean Platelet Volume 7.9 fL (7.4-10.4); Monocytes 7 % (0-10); Neutrophil 82 % (42-75); Platelet Count 395 thou/uL (130-400); Platelet Morphology Comment Appears Adequate; RBC Distribution Width 13.3 % (11.5-14.5); RBC Morphology Normal; Red Blood Cell (RBC) Count 4.07 mill/uL (4.20-5.40); White Blood Cell (WBC) Count 10.4 thou/uL (4.8-10.8)
[2020-02-17] MEDS: hydrALAZINE 20 MG/ML VIAL SLOW IVP PRN ×3 (06:25→22:11)
[2020-02-17] MEDS ORDERED: Furosemide 20 MG TAB PO SCH (08:45)
[2020-02-17] MEDS: Gabapentin 300 MG CAP PO SCH ×4 (08:57→22:08)
[2020-02-17] MEDS: Bupropion 150 MG XL TAB PO SCH ×2 (08:57→09:34)
[2020-02-17] MEDS: Pioglitazone HCl 15 MG TAB PO SCH ×2 (08:58→09:35)
[2020-02-17] MEDS: HYDROcodone/Acetaminophen 5/325 mg Tablet PO PRN ×2 (08:59→12:21)
[2020-02-17] MEDS: Fenofibrate Nanocrystallized 145 MG TAB PO SCH ×2 (08:59→09:34)
[2020-02-17] MEDS: FLUoxetine HCl 20 MG CAP PO SCH ×2 (09:00→09:34)
[2020-02-17] MEDS: hydrALAZINE 25 MG TAB PO SCH ×4 (09:01→22:10)
[2020-02-17] MEDS: cefTRIAXone\\ROCEPHIN 2 GM in Sodium Chloride 0.9% 100 ML IVPB SCH ×3 (09:10→11:22)
--- NOTE | 2020-02-17 12:20 | PDOC.HOSPP ---
- Subjective Encounter Date: 02/17/20 - Objective Vital Signs & Weight: Vital Signs (12 hours) Temp Pulse Resp BP BP Pulse Ox 02/17/20 11:21 77 196/83 H 02/17/20 08:20 97.9 F 71 17 165/79 H 90 L 02/17/20 06:48 72 125/67 02/17/20 06:25 68 178/81 H 02/17/20 05:00 70 162/73 H Weight Admit Weight 299 lb Weight 306 lb 12.8 oz Most Recent Monitor Data Heart Rate from ECG 68 NIBP 148/85 NIBP BP-Mean 106 Respiration from ECG 14 SpO2 97 I&O: 02/16/20 02/17/20 02/18/20 06:59 06:59 06:59 Intake Total 1732 1676 Output Total 1230 1195 Balance 502 481 Result Diagrams: 02/17/20 04:49 02/17/20 04:48 Additional Labs: Accuchecks 02/17/20 02/16/20 02/16/20 10:29 16:02 12:31 POC Glucose 125 H 109 H 155 H Hospitalist ROS - Medication Medications: Active Medications Generic Name Dose Route Start Last Admin Trade Name Freq PRN Reason Stop Dose Admin Acetaminophen/Codeine Phosphate 1 tab 02/16/20 14:04 02/17/20 05:01 Acetaminophen/Codeine 30-300mg Tablet PO 1 tab Q4H PRN Administration Moderate Pain (4-6) Hydrocodone Bitart/Acetaminophen 1 tab 02/16/20 14:04 02/16/20 21:35 Hydrocodone/Acetaminophen 5/325 Mg Tablet PO 1 tab Q6H PRN Administration Severe Pain (7-10) Bupropion HCl 300 mg 02/14/20 09:00 02/17/20 09:34 Bupropion 150 Mg Xl Tab PO Not Given DAILY IRIS Fenofibrate 145 mg 02/14/20 09:00 02/17/20 09:34 Fenofibrate Nanocrystallized 145 Mg Tab PO Not Given DAILY IRIS Fluoxetine HCl 40 mg 02/14/20 09:00 02/17/20 09:34 Fluoxetine Hcl 20 Mg Cap PO Not Given DAILY IRIS Gabapentin 1,200 mg 02/13/20 15:00 02/17/20 09:34 Gabapentin 300 Mg Cap PO Not Given TID IRIS Hydralazine HCl 50 mg 02/15/20 21:00 02/17/20 09:34 Hydralazine 25 Mg Tab PO Not Given TID IRIS Nicardipine HCl 50 mg/ Sodium 250 mls @ 0 mls/hr 02/13/20 04:00 02/16/20 10:22 Chloride IV 250 mls INF IRIS Administration Protocol As Directed Ceftriaxone Sodium 2 gm/ 100 mls @ 200 mls/hr 02/15/20 08:00 02/17/20 11:22 Sodium Chloride IVPB 100 mls Q24HR IRIS Administration Insulin Human Lispro 0 units 02/13/20 09:44 02/16/20 12:41 Humalog 300 Units/3 Ml Vial SC 2 unit .MILD SLIDING SCALE PRN Administration Mild Correctional Scale Labetalol HCl 10 mg 02/17/20 10:15 02/17/20 11:21 Labetalol Hcl 100 Mg/20 Ml Vial SLOW IVP 10 mg Q4H PRN Administration SBP Greater Than 180 Morphine Sulfate 2 mg 02/16/20 14:03 02/16/20 18:29 Morphine 2 Mg/Ml Vial SLOW IVP 2 mg Q1H PRN Administration Severe Pain (7-10) Niacin 1,000 mg 02/14/20 09:00 02/17/20 09:35 Niacin Er 500 Mg Tab PO Not Given DAILY IRIS Ondansetron HCl 4 mg 02/15/20 12:19 02/16/20 18:29 Ondansetron Pf 4 Mg/2 Ml Vial IVP 4 mg Q4H PRN Administration Nausea/Vomiting Pioglitazone HCl 30 mg 02/14/20 09:00 02/17/20 09:35 Pioglitazone Hcl 15 Mg Tab PO Not Given DAILY IRIS Sodium Chloride 10 ml 02/12/20 22:56 02/17/20 05:01 Flush - Normal Saline 10 Ml Syringe IVF 10 ml PRN PRN Administration Saline Flush Tramadol HCl 50 mg 02/15/20 13:24 02/16/20 08:55 Tramadol Hcl 50 Mg Tab PO 50 mg Q6H PRN Administration Headache - Exam General Appearance: awake alert ENT: normocephalic atraumatic Neck: supple, no JVD Heart: RRR Respiratory: normal chest expansion, no tachypnea Gastrointestinal: soft Neurological: cranial nerve grossly intact, no focal deficits Hosp A/P (1) Headache Code(s): R51.9 - HEADACHE, UNSPECIFIED Status: Acute (2) Cerebellar hemorrhage, acute Code(s): I61.4 - NONTRAUMATIC INTRACEREBRAL HEMORRHAGE IN CEREBELLUM Status: Acute (3) Cerebral edema Code(s): G93.6 - CEREBRAL EDEMA Status: Acute (4) DM type 2 (diabetes mellitus, type 2) Status: Acute Qualifiers: Diabetes mellitus intermediate project manager insulin use: without mcc use Diabetes mellitus complication status: without complication Qualified Code(s): E11.9 - Type 2 diabetes mellitus without complications - Plan The patient is confused today. She is refusing to take any of her medications. Her blood pressure is uncontrolled. Start clonidine patch 0.2 mg TD q. 7 days. Hold metoprolol and diltiazem to avoid bradycardia. Repeat CT scan of the head did not show any worsening in her findings. Fioricet every 4 hours as needed for pain.
[2020-02-17] MEDS: Ondansetron PF 4 MG/2 ML Vial IVP PRN (12:21)
[2020-02-17] MEDS ORDERED: cloNIDine 0.2mg/24 Hour PATCH TD SCH (14:00)
[2020-02-18 05:51] LABS: Anion Gap 16 mmol/L (10-20); BUN (Urea Nitrogen) 14 mg/dL (9.8-20.1); Band 6 % (5-11); Calc. Creatinine Clearance 211 mL/min (70-130); Calcium 8.8 mg/dL (7.8-10.44); Carbon Dioxide 23 mmol/L (22-29); Chloride 103 mmol/L (98-107); Eosinophils 2 % (0-10); Estimated GFR-MDRD Greater than 90; Glucose 121 mg/dL (70-105); Hemoglobin 11.8 g/dL (12.0-16.0); Hypochromia SLIGHT = 6-15 cells (100X) (0-5/hpf); Lymphocytes 10 % (21-51); MDiff Complete? YES; Mean Corpuscular HGB CONC 30.6 g/dL (32.0-36.0); Mean Corpuscular Hemoglobin 27.3 pg (27.0-31.0); Mean Corpuscular Volume 89.1 fL (78.0-98.0); Mean Platelet Volume 8.3 fL (7.4-10.4); Monocytes 7 % (0-10); Neutrophil 75 % (42-75); Platelet Count 332 thou/uL (130-400); Platelet Morphology Comment Appears Adequate; Potassium 3.8 mmol/L (3.5-5.1); RBC Distribution Width 13.3 % (11.5-14.5); Red Blood Cell (RBC) Count 4.31 mill/uL (4.20-5.40); Sodium 138 mmol/L (136-145); White Blood Cell (WBC) Count 9.5 thou/uL (4.8-10.8)
[2020-02-18] MEDS: hydrALAZINE 20 MG/ML VIAL SLOW IVP PRN (06:32)
[2020-02-18] MEDS: Bupropion 150 MG XL TAB PO SCH (08:43)
[2020-02-18] MEDS: cefTRIAXone\\ROCEPHIN 2 GM in Sodium Chloride 0.9% 100 ML IVPB SCH (08:44)
[2020-02-18] MEDS: Gabapentin 300 MG CAP PO SCH ×3 (08:45→20:06)
[2020-02-18] MEDS: Amlodipine 10 MG TAB PO SCH (08:46)
[2020-02-18] MEDS: FLUoxetine HCl 20 MG CAP PO SCH (08:46)
[2020-02-18] MEDS: hydrALAZINE 25 MG TAB PO SCH ×3 (08:46→20:06)
[2020-02-18] MEDS: Polyethylene Glycol 3350 17 GM Packet PO PRN (11:44)
[2020-02-18] MEDS: Senokot S 8.6-50 MG TAB PO PRN ×2 (11:44→20:24)
--- NOTE | 2020-02-18 14:17 | PDOC.HOSPP ---
- Subjective Encounter Date: 02/18/20 Subjective: The patient has been more cooperative today. She took her medications per nursing staff. - Objective Vital Signs & Weight: Vital Signs (12 hours) Temp Pulse Resp BP BP Pulse Ox 02/18/20 11:38 98.2 F 69 18 150/73 H 96 02/18/20 11:03 150/73 H 02/18/20 08:46 69 163/72 H 02/18/20 08:45 96 02/18/20 07:47 97.9 F 69 18 163/72 H 96 02/18/20 06:32 78 02/18/20 04:50 98.5 F 69 15 185/76 H 96 Weight Admit Weight 299 lb Weight 308 lb 11.2 oz Most Recent Monitor Data Heart Rate from ECG 68 NIBP 148/85 NIBP BP-Mean 106 Respiration from ECG 14 SpO2 97 I&O: 02/17/20 02/18/20 02/19/20 06:59 06:59 06:59 Intake Total 1676 147 Output Total 1195 1775 Balance 481 -8822 Result Diagrams: 02/18/20 05:21 02/18/20 05:21 Additional Labs: Accuchecks 02/18/20 02/18/20 02/17/20 10:40 04:55 16:08 POC Glucose 141 H 125 H 120 H 02/17/20 03:37 POC Glucose 130 H Hospitalist ROS - Medication Medications: Active Medications Generic Name Dose Route Start Last Admin Trade Name Freq PRN Reason Stop Dose Admin Acetaminophen/Codeine Phosphate 1 tab 02/16/20 14:04 02/17/20 05:01 Acetaminophen/Codeine 30-300mg Tablet PO 1 tab Q4H PRN Administration Moderate Pain (4-6) Hydrocodone Bitart/Acetaminophen 1 tab 02/16/20 14:04 02/17/20 12:21 Hydrocodone/Acetaminophen 5/325 Mg Tablet PO 1 tab Q6H PRN Administration Severe Pain (7-10) Amlodipine Besylate 10 mg 02/18/20 09:00 02/18/20 08:46 Amlodipine 10 Mg Tab PO 10 mg DAILY IRIS Administration Bupropion HCl 300 mg 02/14/20 09:00 02/18/20 08:43 Bupropion 150 Mg Xl Tab PO 150 mg DAILY IRIS Administration Fenofibrate 145 mg 02/14/20 09:00 02/17/20 09:34 Fenofibrate Nanocrystallized 145 Mg Tab PO Not Given DAILY IRIS Fluoxetine HCl 40 mg 02/14/20 09:00 02/18/20 08:46 Fluoxetine Hcl 20 Mg Cap PO 40 mg DAILY IRIS Administration Gabapentin 1,200 mg 02/13/20 15:00 02/18/20 08:45 Gabapentin 300 Mg Cap PO 1,200 mg TID IRIS Administration Hydralazine HCl 50 mg 02/15/20 21:00 02/18/20 08:46 Hydralazine 25 Mg Tab PO 50 mg TID IRIS Administration Hydralazine HCl 20 mg 02/17/20 10:15 02/18/20 06:32 Hydralazine 20 Mg/Ml Vial SLOW IVP 20 mg Q4H PRN Administration SBP GREATER THAN 160 Ceftriaxone Sodium 2 gm/ 100 mls @ 200 mls/hr 02/15/20 08:00 02/18/20 08:44 Sodium Chloride IVPB 100 mls Q24HR IRIS Administration Insulin Human Lispro 0 units 02/13/20 09:44 02/16/20 12:41 Humalog 300 Units/3 Ml Vial SC 2 unit .MILD SLIDING SCALE PRN Administration Mild Correctional Scale Isosorbide Mononitrate 30 mg 02/18/20 09:00 02/18/20 08:46 Isosorbide Mononitrate Er 30 Mg Tab PO 30 mg DAILY IRIS Administration Labetalol HCl 10 mg 02/17/20 10:15 02/17/20 16:58 Labetalol Hcl 100 Mg/20 Ml Vial SLOW IVP 10 mg Q4H PRN Administration SBP Greater Than 180 Morphine Sulfate 2 mg 02/16/20 14:03 02/16/20 18:29 Morphine 2 Mg/Ml Vial SLOW IVP 2 mg Q1H PRN Administration Severe Pain (7-10) Niacin 1,000 mg 02/14/20 09:00 02/17/20 09:35 Niacin Er 500 Mg Tab PO Not Given DAILY [facility] Ondansetron HCl 4 mg 02/15/20 12:19 02/17/20 12:21 Ondansetron Pf 4 Mg/2 Ml Vial IVP 4 mg Q4H PRN Administration Nausea/Vomiting Pioglitazone HCl 30 mg 02/14/20 09:00 02/17/20 09:35 Pioglitazone Hcl 15 Mg Tab PO Not Given DAILY IRIS Polyethylene Glycol 17 gm 02/18/20 09:30 02/18/20 11:44 Polyethylene Glycol 3350 17 Gm Packet PO 17 gm DAILYPRN PRN Administration Constipation Senna/Docusate Sodium 1 tab 02/18/20 09:30 02/18/20 11:44 Senokot S 8.6-50 Mg Tab PO 1 tab BIDPRN PRN Administration Constipation Sodium Chloride 10 ml 02/12/20 22:56 02/18/20 06:34 Flush - Normal Saline 10 Ml Syringe IVF 10 ml PRN PRN Administration Saline Flush - Exam General Appearance: awake alert ENT: normocephalic atraumatic Neck: supple, no JVD Heart: RRR Respiratory: normal chest expansion, no tachypnea Gastrointestinal: soft Neurological: cranial nerve grossly intact, no weakness Hosp A/P (1) Headache Code(s): R51.9 - HEADACHE, UNSPECIFIED Status: Acute (2) Cerebellar hemorrhage, acute Code(s): I61.4 - NONTRAUMATIC INTRACEREBRAL HEMORRHAGE IN CEREBELLUM Status: Acute (3) Cerebral edema Code(s): G93.6 - CEREBRAL EDEMA Status: Acute (4) DM type 2 (diabetes mellitus, type 2) Status: Acute Qualifiers: Diabetes mellitus shelter insulin use: without shelter use Diabetes mellitus complication status: without complication Qualified Code(s): E11.9 - Type 2 diabetes mellitus without complications - Plan The patient is less confused and agitated today. She was able to take her blood pressure medications and her pressures has been more controlled. She has also been sleepy this morning. Discontinue clonidine patch and start hydrochlorothiazide 25 mg orally daily. Repeat CT scan of the head yesterday did not show any worsening in her findings. Fioricet every 4 hours as needed for headache.
[2020-02-18] MEDS ORDERED: Hydrochlorothiazide 25 MG TAB PO SCH (15:00)
[2020-02-18] MEDS: Acetaminophen/Codeine 30-300mg Tablet PO PRN (20:05)
--- NOTE | 2020-02-19 00:46 | PDOC.EVN ---
Event Note - Event Note Event Note: Notified by RN, patient without any urine output since avila was removed at 16:30 yesterday. Bladder scan revealed >999mLs. Straight cath x 1 with UA/UCx. Monitor urine output.
[2020-02-19 02:17] LABS: Bacteria/HPF None Seen HPF (None Seen); Bilirubin Negative (Negative); Blood, Urine Negative (Negative); Clarity Clear (Clear); Glucose, Urine (Dipstick) Normal (Negative); Ketone, Urine Negative (Negative); Leukocyte Negative Leu/uL (Negative); Nitrite Negative (Negative); Protein, Urine (Dipstick) Negative (Neg-Trace); RBC/HPF 0-3 HPF (0-3); Specific Gravity, Urine 1.016 (1.002-1.036); Squamous Epithelial 0-3 HPF (0-3); Urobilinogen Normal mg/dL (Less than 2); WBC/HPF 0-3 HPF (0-3); pH, Urine 6.5 (5.0-9.0)
[2020-02-19 02:26] LABS: Urine Culture Reflex No No
[2020-02-19 05:08] LABS: Eosinophils 2 % (0-10); Hemoglobin 12.6 g/dL (12.0-16.0); Lymphocytes 15 % (21-51); MDiff Complete? YES; Mean Corpuscular Hemoglobin 26.2 pg (27.0-31.0); Mean Corpuscular Volume 90.4 fL (78.0-98.0); Mean Platelet Volume 7.1 fL (7.4-10.4); Monocytes 12 % (0-10); Neutrophil 71 % (42-75); Platelet Count 350 thou/uL (130-400); Platelet Morphology Comment Appears Adequate; RBC Distribution Width 13.2 % (11.5-14.5)
[2020-02-19] MEDS: Acetaminophen/Codeine 30-300mg Tablet PO PRN (05:11)
[2020-02-19 05:18] LABS: Anion Gap 15 mmol/L (10-20); BUN (Urea Nitrogen) 18 mg/dL (9.8-20.1); Calc. Creatinine Clearance 0 mL/min (70-130); Calcium 9.1 mg/dL (7.8-10.44); Carbon Dioxide 23 mmol/L (22-29); Chloride 104 mmol/L (98-107); Estimated GFR-MDRD 83; Glucose 108 mg/dL (70-105); Sodium 138 mmol/L (136-145)
[2020-02-19] MEDS: Labetalol HCl 100 MG/20 ML VIAL SLOW IVP PRN (06:08)
[2020-02-19] MEDS: Gabapentin 300 MG CAP PO SCH ×3 (08:12→21:59)
[2020-02-19] MEDS: Bupropion 150 MG XL TAB PO SCH (08:14)
[2020-02-19] MEDS: FLUoxetine HCl 20 MG CAP PO SCH (08:14)
[2020-02-19] MEDS: Amlodipine 10 MG TAB PO SCH (08:15)
[2020-02-19] MEDS: hydrALAZINE 25 MG TAB PO SCH ×3 (08:15→22:00)
[2020-02-19] MEDS: HYDROcodone/Acetaminophen 5/325 mg Tablet PO PRN (08:16)
[2020-02-19] MEDS: Hydrochlorothiazide 25 MG TAB PO SCH (08:16)
[2020-02-19] MEDS: cloNIDine 0.1 MG TAB PO SCH ×3 (09:47→22:00)
[2020-02-19] MEDS ORDERED: Mineral Oil ENEMA PR SCH (11:30)
[2020-02-19] MEDS: Ondansetron PF 4 MG/2 ML Vial IVP PRN ×2 (11:54→16:27)
[2020-02-19] MEDS ORDERED: Losartan 25 MG TAB PO SCH (15:00)
--- NOTE | 2020-02-19 15:03 | PDOC.HOSPP ---
- Subjective Encounter Date: 02/19/20 - Objective Vital Signs & Weight: Vital Signs (12 hours) Temp Pulse Pulse Pulse Resp BP BP 02/19/20 11:54 97.3 F L 73 16 02/19/20 11:01 74 69 157/63 H 02/19/20 09:47 154/70 H 02/19/20 08:51 64 156/81 H 02/19/20 08:00 98.1 F 66 18 02/19/20 06:08 63 02/19/20 04:22 98.0 F 20 BP BP Pulse Ox 02/19/20 11:54 160/83 H 94 L 02/19/20 11:01 168/66 H 02/19/20 09:47 02/19/20 08:51 02/19/20 08:00 193/84 H 94 L 02/19/20 06:08 02/19/20 04:22 178/84 H Weight Admit Weight 299 lb Weight 10.3 oz Most Recent Monitor Data Heart Rate from ECG 68 NIBP 148/85 NIBP BP-Mean 106 Respiration from ECG 14 SpO2 97 I&O: 02/18/20 02/19/20 02/20/20 06:59 06:59 06:59 Intake Total 147 500 120 Output Total 177 2051 344 Balance -5309 -9644 -314 Result Diagrams: 02/19/20 04:33 02/19/20 04:33 Additional Labs: Accuchecks 02/19/20 02/19/20 02/18/20 10:38 06:01 20:47 POC Glucose 138 H 101 H 130 H 02/18/20 16:46 POC Glucose 126 H Hospitalist ROS - Medication Medications: Active Medications Generic Name Dose Route Start Last Admin Trade Name Freq PRN Reason Stop Dose Admin Acetaminophen/Codeine Phosphate 1 tab 02/16/20 14:04 02/19/20 05:11 Acetaminophen/Codeine 30-300mg Tablet PO 1 tab Q4H PRN Administration Moderate Pain (4-6) Hydrocodone Bitart/Acetaminophen 1 tab 02/16/20 14:04 02/19/20 08:16 Hydrocodone/Acetaminophen 5/325 Mg Tablet PO 1 tab Q6H PRN Administration Severe Pain (7-10) Amlodipine Besylate 10 mg 02/18/20 09:00 02/19/20 08:15 Amlodipine 10 Mg Tab PO 10 mg DAILY IRIS Administration Bupropion HCl 300 mg 02/14/20 09:00 02/19/20 08:14 Bupropion 150 Mg Xl Tab PO 300 mg DAILY IRIS Administration Clonidine 0.1 mg 02/19/20 09:00 02/19/20 09:47 Clonidine 0.1 Mg Tab PO 0.1 mg TID IRIS Administration Fenofibrate 145 mg 02/14/20 09:00 02/17/20 09:34 Fenofibrate Nanocrystallized 145 Mg Tab PO Not Given DAILY IRIS Fluoxetine HCl 40 mg 02/14/20 09:00 02/19/20 08:14 Fluoxetine Hcl 20 Mg Cap PO 40 mg DAILY IRIS Administration Gabapentin 1,200 mg 02/13/20 15:00 02/19/20 08:12 Gabapentin 300 Mg Cap PO 1,200 mg TID IRIS Administration Hydralazine HCl 20 mg 02/17/20 10:15 02/18/20 06:32 Hydralazine 20 Mg/Ml Vial SLOW IVP 20 mg Q4H PRN Administration SBP GREATER THAN 160 Hydrochlorothiazide 25 mg 02/19/20 09:00 02/19/20 08:16 Hydrochlorothiazide 25 Mg Tab PO 25 mg DAILY IRIS Administration Insulin Human Lispro 0 units 02/13/20 09:44 02/16/20 12:41 Humalog 300 Units/3 Ml Vial SC 2 unit .MILD SLIDING SCALE PRN Administration Mild Correctional Scale Isosorbide Mononitrate 30 mg 02/18/20 09:00 02/19/20 08:15 Isosorbide Mononitrate Er 30 Mg Tab PO 30 mg DAILY IRIS Administration Labetalol HCl 10 mg 02/17/20 10:15 02/19/20 06:08 Labetalol Hcl 100 Mg/20 Ml Vial SLOW IVP 10 mg Q4H PRN Administration SBP Greater Than 180 Morphine Sulfate 2 mg 02/16/20 14:03 02/16/20 18:29 Morphine 2 Mg/Ml Vial SLOW IVP 2 mg Q1H PRN Administration Severe Pain (7-10) Niacin 1,000 mg 02/14/20 09:00 02/17/20 09:35 Niacin Er 500 Mg Tab PO Not Given DAILY IRIS Ondansetron HCl 4 mg 02/15/20 12:19 02/19/20 11:54 Ondansetron Pf 4 Mg/2 Ml Vial IVP 4 mg Q4H PRN Administration Nausea/Vomiting Pioglitazone HCl 30 mg 02/14/20 09:00 02/17/20 09:35 Pioglitazone Hcl 15 Mg Tab PO Not Given DAILY IRIS Polyethylene Glycol 17 gm 02/18/20 09:30 02/18/20 11:44 Polyethylene Glycol 3350 17 Gm Packet PO 17 gm DAILYPRN PRN Administration Constipation Senna/Docusate Sodium 1 tab 02/18/20 09:30 02/18/20 20:24 Senokot S 8.6-50 Mg Tab PO 1 tab BIDPRN PRN Administration Constipation Sodium Chloride 10 ml 02/12/20 22:56 02/18/20 06:34 Flush - Normal Saline 10 Ml Syringe IVF 10 ml PRN PRN Administration Saline Flush - Exam General Appearance: awake alert ENT: normocephalic atraumatic Neck: supple, no JVD Heart: RRR Respiratory: CTAB Gastrointestinal: soft Extremities: no cyanosis, no clubbing Neurological: cranial nerve grossly intact, no focal deficits Hosp A/P (1) Headache Code(s): R51.9 - HEADACHE, UNSPECIFIED Status: Acute (2) Cerebellar hemorrhage, acute Code(s): I61.4 - NONTRAUMATIC INTRACEREBRAL HEMORRHAGE IN CEREBELLUM Status: Acute (3) Cerebral edema Code(s): G93.6 - CEREBRAL EDEMA Status: Acute (4) DM type 2 (diabetes mellitus, type 2) Status: Acute 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 Blood pressure still not adequately controlled. The patient is on amlodipine, hydralazine, isosorbide mononitrate, hydrochlorothiazide, and clonidine. We will add losartan to her regimen. Her hypertension is resistant and is likely secondary in nature. I will check ultrasound of the renal arteries. No evidence of neurological deficits at this point.
--- NOTE | 2020-02-19 16:04 | ULT ---
US Renal Bilateral STANDARD: 02/19/2020 3:20 PM CLINICAL HISTORY: Chronic kidney disease. STUDY: Renal ultrasound COMPARISON: None. FINDINGS: This exam is limited secondary to patient's large body habitus and bowel gas. Evaluation of the renal arteries and vasculature cannot be performed. Right kidney: Echogenicity: Normal. Masses/cysts: None. Hydronephrosis: None. Calcifications: None. Length: 9.5 cm Left kidney: Echogenicity: Normal. Masses/cysts: None. Hydronephrosis: None. Calcifications: None. Length: 11.6 cm The urinary bladder is decompressed with a Kwan catheter. IMPRESSION: Unremarkable renal ultrasound
[2020-02-19] MEDS ORDERED: Acetaminophen 325 MG TAB PO PRN (17:07)
[2020-02-19] MEDS: Senokot S 8.6-50 MG TAB PO PRN (21:59)
[2020-02-20] MEDS: HYDROcodone/Acetaminophen 5/325 mg Tablet PO PRN ×3 (03:58→21:11)
[2020-02-20] MEDS ORDERED: Iopamidol-370 76% 500 ML 1 ML ONE (08:53)
[2020-02-20] MEDS ORDERED: Doxylamine 25 MG TAB PO SCH (09:00)
[2020-02-20] MEDS ORDERED: Losartan 25 MG TAB PO SCH ×2 (09:00→18:15)
[2020-02-20 09:05] LABS: Anion Gap 15 mmol/L (10-20); BUN (Urea Nitrogen) 16 mg/dL (9.8-20.1); Calc. Creatinine Clearance 0 mL/min (70-130); Calcium 9.5 mg/dL (7.8-10.44); Carbon Dioxide 27 mmol/L (22-29); Chloride 101 mmol/L (98-107); Estimated GFR-MDRD 78; Glucose 150 mg/dL (70-105); Potassium 3.6 mmol/L (3.5-5.1); Sodium 139 mmol/L (136-145)
[2020-02-20] MEDS ORDERED: NIFEdipine XL 60 MG TAB PO SCH (09:30)
[2020-02-20 09:36] LABS: Hemoglobin 11.8 g/dL (12.0-16.0); Mean Corpuscular HGB CONC 32.6 g/dL (32.0-36.0); Mean Corpuscular Hemoglobin 29.1 pg (27.0-31.0); Mean Corpuscular Volume 89.1 fL (78.0-98.0); Mean Platelet Volume 7.1 fL (7.4-10.4); Platelet Count 425 thou/uL (130-400); RBC Distribution Width 12.9 % (11.5-14.5); Red Blood Cell (RBC) Count 4.04 mill/uL (4.20-5.40); White Blood Cell (WBC) Count 7.9 thou/uL (4.8-10.8)
[2020-02-20] MEDS: Senokot S 8.6-50 MG TAB PO PRN ×2 (09:59→21:12)
[2020-02-20] MEDS: FLUoxetine HCl 20 MG CAP PO SCH (09:59)
[2020-02-20] MEDS: Hydrochlorothiazide 25 MG TAB PO SCH (09:59)
[2020-02-20] MEDS: Polyethylene Glycol 3350 17 GM Packet PO PRN (09:59)
[2020-02-20] MEDS: Bupropion 150 MG XL TAB PO SCH (10:00)
[2020-02-20] MEDS: Gabapentin 300 MG CAP PO SCH ×3 (10:00→21:10)
[2020-02-20] MEDS: cloNIDine 0.1 MG TAB PO SCH (10:14)
[2020-02-20] MEDS: hydrALAZINE 25 MG TAB PO SCH (10:14)
[2020-02-20 11:23] LABS: Band 5 % (5-11); Eosinophils 2 % (0-10); Lymphocytes 18 % (21-51); MDiff Complete? YES; Monocytes 6 % (0-10); Neutrophil 69 % (42-75); Platelet Morphology Comment Appears Increased; Polychromasia SLIGHT = 2-3 cells (100X) (0-2/hpf)
[2020-02-20] MEDS: Labetalol HCl 100 MG/20 ML VIAL SLOW IVP PRN ×3 (11:44→23:22)
[2020-02-20] MEDS ORDERED: NIFEdipine XL 30 MG TAB PO SCH (13:00)
--- NOTE | 2020-02-20 13:49 | ULT ---
US Renal Bilateral STANDARD: 02/19/2020 3:20 PM CLINICAL HISTORY: Chronic kidney disease. STUDY: Renal ultrasound COMPARISON: None. FINDINGS: This exam is limited secondary to patient's large body habitus and bowel gas. Evaluation of the renal arteries and vasculature cannot be performed. Right kidney: Echogenicity: Normal. Masses/cysts: None. Hydronephrosis: None. Calcifications: None. Length: 9.5 cm Left kidney: Echogenicity: Normal. Masses/cysts: None. Hydronephrosis: None. Calcifications: None. Length: 11.6 cm The urinary bladder is decompressed with a Kwan catheter. IMPRESSION: Unremarkable renal ultrasound Transcribed Date/Time: 02/20/2020 1:48 PM
--- NOTE | 2020-02-20 17:03 | CT ---
CTA ABDOMEN AND PELVIS WITH CONTRAST: 02/20/20 Axial tomograms obtained with multiplanar reconstruction and 3D post processing following angio glenny col. INDICATIONS: Hypertension. Assess for renal artery stenosis. FINDINGS: The abdominal aorta shows mild atherosclerotic change. There is no aneurysm or dissection. No stenosi s seen at the origin of the celiac artery or the superior mesenteric artery. The superior mesenteric artery trunk is patent with no significant stenosis or atherosclerotic disease. Right renal artery is widely patent with no stenosis. There is atherosclerotic calcification at the origin of the left renal artery. This does not appear t o produce hemodynamically significant stenosis. There is mild stenosis at the origin which does not m eet NASCET criteria. The aortic bifurcation is patent. The visualized iliac arteries are patent and symmetric. Images through the lung bases show dense atelectasis and/or consolidation of the right lower lobe wit h small right effusion. The liver, spleen, and pancreas unremarkable. Adrenal glands normal. Review of kidneys reveals a heterogeneous fat density mass arising from the inferior pole of the righ t kidney which measures approximately 3.5 cm on the coronal plane. 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 The visualized bowel loops appear unremarkable. Images through the pelvis show evidence of hysterectomy. The bladder is contracted with a Kwan charissa ter in place. Osseous structures show degenerative changes in the spine. IMPRESSION: 1. Atherosclerotic calcification of the origin of the left renal artery without evidence of sign ificant renal artery stenosis. 2. 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 3. Dense atelectasis and/or consolidation of the right lower lobe with small right effusion. POS: [facility]
[2020-02-20] MEDS: hydrALAZINE 20 MG/ML VIAL SLOW IVP PRN (17:42)
[2020-02-20] MEDS: Ondansetron PF 4 MG/2 ML Vial IVP PRN ×2 (18:20→23:18)
--- NOTE | 2020-02-20 19:55 | PDOC.HOSPP ---
- Subjective Encounter Date: 02/20/20 - Objective Vital Signs & Weight: Vital Signs (12 hours) Temp Pulse Pulse Pulse Resp BP BP 02/20/20 18:20 02/20/20 17:42 75 168/78 H 02/20/20 17:15 02/20/20 16:11 74 171/82 H 02/20/20 15:47 98.3 F 67 18 02/20/20 13:25 80 02/20/20 13:22 02/20/20 12:25 80 02/20/20 11:44 73 02/20/20 11:35 98.2 F 72 18 02/20/20 10:59 72 74 196/90 H 02/20/20 10:14 75 02/20/20 09:58 75 02/20/20 07:54 98 F 72 18 BP BP Pulse Ox 02/20/20 18:20 158/70 H 02/20/20 17:42 02/20/20 17:15 155/74 H 02/20/20 16:11 02/20/20 15:47 164/85 H 97 02/20/20 13:25 02/20/20 13:22 94 L 02/20/20 12:25 157/69 H 02/20/20 11:44 02/20/20 11:35 196/90 H 94 L 02/20/20 10:59 194/94 H 02/20/20 10:14 02/20/20 09:58 02/20/20 07:54 161/81 H 96 Weight Admit Weight 299 lb Weight 300 lb 4.8 oz Most Recent Monitor Data Heart Rate from ECG 68 NIBP 148/85 NIBP BP-Mean 106 Respiration from ECG 14 SpO2 97 I&O: 02/19/20 02/20/20 02/21/20 06:59 06:59 06:59 Intake Total 500 600 520 Output Total 2049 6416 2611 Balance -2484 -473 -4982 Result Diagrams: 02/20/20 08:28 02/20/20 08:28 Additional Labs: Accuchecks 02/20/20 02/20/20 02/20/20 16:43 10:45 05:25 POC Glucose 109 H 143 H 116 H 02/19/20 21:44 POC Glucose 123 H Hospitalist ROS - Medication Medications: Active Medications Generic Name Dose Route Start Last Admin Trade Name Freq PRN Reason Stop Dose Admin Acetaminophen 650 mg 02/19/20 17:07 02/19/20 17:17 Acetaminophen 325 Mg Tab PO 650 mg Q6H PRN Administration Headache/Fever or Pain Acetaminophen/Butalbital/Caffeine 1 tab 02/16/20 11:55 02/20/20 18:32 Fioricet 325/50/40 Mg Tablet PO 02/21/20 11:56 1 tab Q4H PRN Administration Headache Acetaminophen/Codeine Phosphate 1 tab 02/16/20 14:04 02/19/20 05:11 Acetaminophen/Codeine 30-300mg Tablet PO 1 tab Q4H PRN Administration Moderate Pain (4-6) Hydrocodone Bitart/Acetaminophen 1 tab 02/16/20 14:04 02/20/20 14:50 Hydrocodone/Acetaminophen 5/325 Mg Tablet PO 1 tab Q6H PRN Administration Severe Pain (7-10) Bupropion HCl 300 mg 02/14/20 09:00 02/20/20 10:00 Bupropion 150 Mg Xl Tab PO 300 mg DAILY IRIS Administration Fenofibrate 145 mg 02/14/20 09:00 02/17/20 09:34 Fenofibrate Nanocrystallized 145 Mg Tab PO Not Given DAILY IRIS Fluoxetine HCl 40 mg 02/14/20 09:00 02/20/20 09:59 Fluoxetine Hcl 20 Mg Cap PO 40 mg DAILY IRIS Administration Gabapentin 1,200 mg 02/13/20 15:00 02/20/20 14:51 Gabapentin 300 Mg Cap PO 1,200 mg TID IRIS Administration Hydralazine HCl 20 mg 02/17/20 10:15 02/20/20 17:42 Hydralazine 20 Mg/Ml Vial SLOW IVP 20 mg Q4H PRN Administration SBP GREATER THAN 160 Hydrochlorothiazide 25 mg 02/19/20 09:00 02/20/20 09:59 Hydrochlorothiazide 25 Mg Tab PO 25 mg DAILY IRIS Administration Insulin Human Lispro 0 units 02/13/20 09:44 02/16/20 12:41 Humalog 300 Units/3 Ml Vial SC 2 unit .MILD SLIDING SCALE PRN Administration Mild Correctional Scale Labetalol HCl 10 mg 02/20/20 13:00 02/20/20 16:11 Labetalol Hcl 100 Mg/20 Ml Vial SLOW IVP 10 mg Q4H PRN Administration Sbp Greater Than 150 Losartan Potassium 50 mg 02/20/20 18:15 02/20/20 18:25 Losartan 25 Mg Tab PO 02/20/20 20:15 50 mg NOW IRIS Administration Morphine Sulfate 2 mg 02/16/20 14:03 02/16/20 18:29 Morphine 2 Mg/Ml Vial SLOW IVP 2 mg Q1H PRN Administration Severe Pain (7-10) Niacin 1,000 mg 02/14/20 09:00 02/17/20 09:35 Niacin Er 500 Mg Tab PO Not Given DAILY IRIS Ondansetron HCl 4 mg 02/15/20 12:19 02/20/20 18:20 Ondansetron Pf 4 Mg/2 Ml Vial IVP 4 mg Q4H PRN Administration Nausea/Vomiting Pioglitazone HCl 30 mg 02/14/20 09:00 02/17/20 09:35 Pioglitazone Hcl 15 Mg Tab PO Not Given DAILY IRIS Polyethylene Glycol 17 gm 02/18/20 09:30 02/20/20 09:59 Polyethylene Glycol 3350 17 Gm Packet PO 17 gm DAILYPRN PRN Administration Constipation Senna/Docusate Sodium 1 tab 02/18/20 09:30 02/20/20 09:59 Senokot S 8.6-50 Mg Tab PO 1 tab BIDPRN PRN Administration Constipation Sodium Chloride 10 ml 02/12/20 22:56 02/20/20 10:00 Flush - Normal Saline 10 Ml Syringe IVF 10 ml PRN PRN Administration Saline Flush - Exam General Appearance: awake alert ENT: normocephalic atraumatic Neck: supple, no JVD Respiratory: normal chest expansion, no tachypnea Extremities: no cyanosis, no clubbing Neurological: cranial nerve grossly intact, no focal deficits Hosp A/P (1) Cerebellar hemorrhage, acute Code(s): I61.4 - NONTRAUMATIC INTRACEREBRAL HEMORRHAGE IN CEREBELLUM Status: Acute (2) Headache Code(s): R51.9 - HEADACHE, UNSPECIFIED Status: Acute (3) Cerebral edema Code(s): G93.6 - CEREBRAL EDEMA Status: Acute (4) DM type 2 (diabetes mellitus, type 2) Status: Acute Qualifiers: Diabetes mellitus care home insulin use: without care home use Diabetes mellitus complication status: without complication Qualified Code(s): E11.9 - Type 2 diabetes mellitus without complications - Plan Patient is alert and oriented. The patient with resistent HTN despite multiple antihypertensive medications. Nephrology consulted to help manage the BP. CTA of the abdomen did not show significant renal artery stenosis. No evidence of neurological deficits at this point.
[2020-02-21 04:56] LABS: Band 1 % (5-11); Eosinophils 6 % (0-10); Hemoglobin 11.9 g/dL (12.0-16.0); Lymphocytes 20 % (21-51); MDiff Complete? YES; Mean Corpuscular HGB CONC 32.4 g/dL (32.0-36.0); Mean Corpuscular Volume 89.6 fL (78.0-98.0); Mean Platelet Volume 6.9 fL (7.4-10.4); Monocytes 11 % (0-10); Myelocyte 1 % (0-0); Neutrophil 61 % (42-75); Platelet Count 386 thou/uL (130-400); Platelet Morphology Comment Appears Adequate; RBC Distribution Width 13.1 % (11.5-14.5); Red Blood Cell (RBC) Count 4.08 mill/uL (4.20-5.40); White Blood Cell (WBC) Count 4.9 thou/uL (4.8-10.8)
[2020-02-21 05:07] LABS: Anion Gap 15 mmol/L (10-20); BUN (Urea Nitrogen) 12 mg/dL (9.8-20.1); Calc. Creatinine Clearance 171 mL/min (70-130); Calcium 9.8 mg/dL (7.8-10.44); Carbon Dioxide 26 mmol/L (22-29); Chloride 101 mmol/L (98-107); Estimated GFR-MDRD 76; Glucose 104 mg/dL (70-105); Potassium 3.8 mmol/L (3.5-5.1); Sodium 138 mmol/L (136-145)
[2020-02-21] MEDS: HYDROcodone/Acetaminophen 5/325 mg Tablet PO PRN ×2 (05:43→21:38)
[2020-02-21] MEDS: Ondansetron PF 4 MG/2 ML Vial IVP PRN ×2 (05:44→12:35)
--- NOTE | 2020-02-21 07:31 | CON ---
DATE OF CONSULTATION: 02/20/2020 SERVICE: Nephrology. REASON FOR CONSULTATION: Poorly controlled hypertension. REQUESTING PHYSICIAN: Dr. Nirav Anderson. CHIEF COMPLAINT: Mental status change. HISTORY OF PRESENT ILLNESS: A 59-year-old morbidly obese female with known history of hypertension, who was admitted on February 12, 2020, due to acute mental status change as well as preceded by headache associated with nausea and vomiting. The patient was found to have depressed GCS as well as intracranial bleeding in the context of markedly elevated blood pressure. She was started on Cardene drip. The patient also was intubated and managed initially in the ICU before transfer to the floor. Blood pressure control has been suboptimal despite multiple medications including clonidine, isosorbide mononitrate, hydralazine, amlodipine, and hydrochlorothiazide. Nephrology consult was requested to help with blood pressure management. The patient denied headache, nausea, vomiting, or abdominal pain. She is back to usual mental status and is moving all limbs. PAST MEDICAL HISTORY: 1. Morbid obesity. 2. Hypertension. 3. Type 2 diabetes. 4. Osteoarthritis. PAST SURGICAL HISTORY: 1. Colon resection. 2. Cholecystectomy. 3. Hernia repair. 4. Right knee replacement. 5. Appendectomy. FAMILY HISTORY: Reviewed, but noncontributory. SOCIAL HISTORY: Lives with at home. Denied alcohol or recreational drug use. ALLERGIES: NO KNOWN DRUG ALLERGIES REPORTED. MEDICATIONS: Prior to hospital, medications are as follows; 1. Actos 30 mg p.o. daily. 2. Diltiazem 180 mg p.o. daily. 3. Celecoxib 200 mg p.o. b.i.d. 4. Estradiol 2 mg p.o. daily. 5. Farxiga 5 mg p.o. daily. 6. Fenofibrate 134 mg p.o. daily. 7. Fluoxetine 40 mg p.o. daily. 8. Gabapentin 1200 mg p.o. t.i.d. 9. Metformin 1000 mg p.o. b.i.d. 10. Meloxicam 15 mg p.o. daily. 11. Niacin 1000 mg p.o. daily. 12. Potassium chloride 10 mEq p.o. daily. 13. Metoprolol succinate 100 mg p.o. b.i.d. 14. Wellbutrin 300 mg p.o. daily. 15. Lasix 20 mg p.o. daily p.r.n. 16. Tizanidine 4 mg p.o. p.r.n. Current hospital medications are as follows; 1. Amlodipine 10 mg p.o. daily. 2. Wellbutrin 300 mg p.o. daily. 3. Clonidine 0.1 mg p.o. t.i.d. 4. Fenofibrate 134 mg p.o. daily. 5. Fluoxetine daily. 6. Gabapentin t.i.d. 7. Hydralazine 75 mg p.o. t.i.d. 8. Hydrochlorothiazide 25 mg p.o. daily. 9. Isosorbide mononitrate 30 mg p.o. daily. 10. Losartan 50 mg p.o. daily. 11. Niacin 1000 mg daily. REVIEW OF SYSTEMS: A 12-point review of system performed was negative other than pertinent positives and negatives included in the history of present illness. PHYSICAL EXAMINATION: VITAL SIGNS: Temperature 98.0, pulse 72, respiratory rate 18, SpO2 of 96 on room air, blood pressure is 161/81. Intake and output in the last 24 hours showed total intake of 600 with output of 1450. GENERAL: Morbidly obese female, in no obvious distress. Afebrile, anicteric, acyanotic. HEENT: Normocephalic, atraumatic. Oral mucosa is moist. NECK: Short thick neck with excess subcutaneous tissue. CARDIOVASCULAR: Regular rhythm and rate with soft systolic murmur. Normal heart sounds 1 and 2 noted. RESPIRATORY: Fair air entry bilaterally with few transmitted breath sounds. No crackle or rhonchi or use of accessory muscles appreciated. GI: Morbidly obese, soft, nontender, nondistended with normal bowel sounds. UROGENITAL: Kwan catheter is in place draining some urine. EXTREMITIES: Grossly normal looking, atraumatic with no edema or erythema. Scar of prior right total knee replacement noted. 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 Moves all extremities symmetrically with normal power. DIAGNOSTIC DATA: CBC on February 18 showed WBC of 8.0, hemoglobin of 12.6, platelets of 350. BMP on February 18 showed sodium 138, potassium 4.0, chloride 104, CO2 of 23, BUN 18, creatinine 0.72, glucose 108, calcium 9.1. Urinalysis yesterday on February 18 showed light clear yellow urine with pH of 6.5; specific gravity of 1.016; negative protein, ketone, blood, nitrite, and leukocyte esterase. Renal ultrasound performed yesterday showed normal kidneys with normal echogenicity with right measuring 9.5 in length and left 11.6. Echocardiogram of the heart performed on February 15, 2020, showed preserved left ventricular systolic function with EF of 55 to 60. Left atrium is noted to be moderately to severely dilated with mild mitral regurgitation. Pulmonary artery pressure was noted to be normal. ASSESSMENT: 1. Malignant hypertension: The patient had markedly elevated blood pressures on presentation with right cerebellar bleed. Blood pressure is still suboptimally controlled despite being on multiple antihypertensives. The patient currently is on clonidine 0.1 mg t.i.d., amlodipine 10 mg daily, hydralazine 75 mg p.o. t.i.d., hydrochlorothiazide 25 mg daily, isosorbide mononitrate 30 mg p.o. daily, losartan 50 mg p.o. daily. Secondary HTN is a concern given onset of HTN since age 20. 2. Intracranial bleed. 3. Morbid obesity. 4. Diabetes mellitus. PLAN: We will try to streamline the patient's antihypertensive therapy. We will discontinue amlodipine, isosorbide mononitrate, and hydralazine, and we will start nifedipine 60 mg daily as well as metoprolol. We will monitor blood pressure closely and adjust antihypertensives. Nifedipine can be increased to 60 b.i.d. if needed. Also, losartan can also be increased from 50 currently to 100 daily to get adequate BP control. Of note, the patient is on clonidine t.i.d., but the patient gets this at 9 a.m., 3 p.m., and 9 p.m. Such that in a 24-hour period, she gets the three doses, and in the remaining 12 hours, she gets nothing, leading to possible rebound hypertension. As such, clonidine will be discontinued. The patient is not very compliant, as such, clonidine will be a poor choice for her as well. We will monitor vitals and re-evaluate treatment with a view to adjusting it. We will also get CTA abd/pelvis to rule out renovascular HTN. We will also get plasma aldosterone renin ratio. Many thanks for involving us in the care of this patient. We will follow along with you. Job ID: [id number]
[2020-02-21] MEDS: Gabapentin 300 MG CAP PO SCH ×3 (08:33→21:39)
[2020-02-21] MEDS: Hydrochlorothiazide 25 MG TAB PO SCH (08:35)
[2020-02-21] MEDS: Losartan 25 MG TAB PO SCH (08:35)
[2020-02-21] MEDS: NIFEdipine XL 90 MG TAB PO SCH (08:35)
[2020-02-21] MEDS: FLUoxetine HCl 20 MG CAP PO SCH (08:35)
[2020-02-21] MEDS: Bupropion 150 MG XL TAB PO SCH (08:36)
[2020-02-21] MEDS: DOXYCYCLINE 50 MG PO SCH (08:36)
[2020-02-21] MEDS ORDERED: NIFEdipine XL 60 MG TAB PO SCH (09:00)
[2020-02-21] MEDS ORDERED: Scopolamine 1.5 mg/72 hour Patch TD SCH (09:00)
[2020-02-21] MEDS ORDERED: Promethazine HCl 25 MG/ML VIAL IM/IV SCH (09:00)
[2020-02-21] MEDS: Polyethylene Glycol 3350 17 GM Packet PO SCH ×2 (09:28→21:40)
[2020-02-21] MEDS: Labetalol HCl 100 MG/20 ML VIAL SLOW IVP PRN (09:39)
[2020-02-21] MEDS ORDERED: Bupropion 150 MG XL TAB PO SCH (10:30)
[2020-02-21] MEDS ORDERED: Losartan 25 MG TAB PO SCH (10:30)
[2020-02-21] MEDS ORDERED: FLUoxetine HCl 20 MG CAP PO SCH (10:30)
[2020-02-21] MEDS ORDERED: Gabapentin 400 MG CAP PO SCH (10:30)
[2020-02-21] MEDS ORDERED: DOXYCYCLINE 50 MG PO SCH (10:30)
[2020-02-21] MEDS ORDERED: NIFEdipine XL 90 MG TAB PO SCH (10:30)
--- NOTE | 2020-02-21 11:00 | PDOC.NEPPN ---
- Subjective Encounter Date: 02/21/20 Subjective: Seen in follow up for severe HTN management. Complaining of nausea since 2 days and actually had an emesis during my visit.. Denied headache or abdominal pain. - Objective Vital Signs & Weight: Vital Signs (12 hours) Temp Pulse Pulse Pulse Resp BP BP 02/21/20 09:53 92 72 148/74 H 02/21/20 09:39 73 176/81 H 02/21/20 08:28 02/21/20 07:28 98.4 F 73 16 02/21/20 04:00 98.0 F 70 16 02/20/20 23:22 70 155/81 H 02/20/20 23:18 98.3 F 71 16 BP BP Pulse Ox 02/21/20 09:53 167/81 H 02/21/20 09:39 02/21/20 08:28 93 L 02/21/20 07:28 154/79 H 93 L 02/21/20 04:00 145/76 H 94 L 02/20/20 23:22 02/20/20 23:18 155/81 H 92 L Weight Admit Weight 299 lb Weight 300 lb 4.8 oz Most Recent Monitor Data Heart Rate from ECG 68 NIBP 148/85 NIBP BP-Mean 106 Respiration from ECG 14 SpO2 97 I&O: 02/20/20 02/21/20 02/22/20 06:59 06:59 06:59 Intake Total 600 760 Output Total 1450 4375 Balance -187 -8956 Result Diagrams: 02/21/20 04:17 02/21/20 04:17 Additional Labs: Accuchecks 02/21/20 02/21/20 02/20/20 10:36 04:58 16:43 POC Glucose 111 H 114 H 109 H Nephrology ROS - Medication Medications: Active Medications Generic Name Dose Route Start Last Admin Trade Name Freq PRN Reason Stop Dose Admin Acetaminophen 650 mg 02/19/20 17:07 02/19/20 17:17 Acetaminophen 325 Mg Tab PO 650 mg Q6H PRN Administration Headache/Fever or Pain Acetaminophen/Butalbital/Caffeine 1 tab 02/16/20 11:55 02/20/20 18:32 Fioricet 325/50/40 Mg Tablet PO 02/21/20 11:56 1 tab Q4H PRN Administration Headache Acetaminophen/Codeine Phosphate 1 tab 02/16/20 14:04 02/19/20 05:11 Acetaminophen/Codeine 30-300mg Tablet PO 1 tab Q4H PRN Administration Moderate Pain (4-6) Hydrocodone Bitart/Acetaminophen 1 tab 02/16/20 14:04 02/21/20 05:43 Hydrocodone/Acetaminophen 5/325 Mg Tablet PO 1 tab Q6H PRN Administration Severe Pain (7-10) Bupropion HCl 300 mg 02/14/20 09:00 02/21/20 08:36 Bupropion 150 Mg Xl Tab PO 300 mg DAILY IRIS Administration Fenofibrate 145 mg 02/14/20 09:00 02/17/20 09:34 Fenofibrate Nanocrystallized 145 Mg Tab PO Not Given DAILY IRIS Fluoxetine HCl 40 mg 02/14/20 09:00 02/21/20 08:35 Fluoxetine Hcl 20 Mg Cap PO 40 mg DAILY IRIS Administration Gabapentin 1,200 mg 02/13/20 15:00 02/21/20 08:33 Gabapentin 300 Mg Cap PO 1,200 mg TID IRIS Administration Hydralazine HCl 20 mg 02/17/20 10:15 02/20/20 17:42 Hydralazine 20 Mg/Ml Vial SLOW IVP 20 mg Q4H PRN Administration SBP GREATER THAN 160 Hydrochlorothiazide 25 mg 02/19/20 09:00 02/21/20 08:35 Hydrochlorothiazide 25 Mg Tab PO 25 mg DAILY IRIS Administration Insulin Human Lispro 0 units 02/13/20 09:44 02/16/20 12:41 Humalog 300 Units/3 Ml Vial SC 2 unit .MILD SLIDING SCALE PRN Administration Mild Correctional Scale Labetalol HCl 10 mg 02/20/20 13:00 02/21/20 09:39 Labetalol Hcl 100 Mg/20 Ml Vial SLOW IVP 10 mg Q4H PRN Administration Sbp Greater Than 150 Losartan Potassium 100 mg 02/21/20 09:00 02/21/20 08:35 Losartan 25 Mg Tab PO 100 mg DAILY IRIS Administration Metoprolol Succinate 50 mg 02/20/20 21:00 02/21/20 08:36 Metoprolol Succinate Xl 50 Mg Tab PO 50 mg BID IRIS Administration Morphine Sulfate 2 mg 02/16/20 14:03 02/16/20 18:29 Morphine 2 Mg/Ml Vial SLOW IVP 2 mg Q1H PRN Administration Severe Pain (7-10) Niacin 1,000 mg 02/14/20 09:00 02/17/20 09:35 Niacin Er 500 Mg Tab PO Not Given DAILY IRIS Nifedipine 90 mg 02/21/20 09:00 02/21/20 08:35 Nifedipine Xl 90 Mg Tab PO 90 mg DAILY IRIS Administration Ondansetron HCl 4 mg 02/15/20 12:19 02/21/20 05:44 Ondansetron Pf 4 Mg/2 Ml Vial IVP 4 mg Q4H PRN Administration Nausea/Vomiting Doxycycline 50 Mg 0 each 02/21/20 09:00 02/21/20 08:36 Tab PO 1 each DAILY IRIS Administration Pioglitazone HCl 30 mg 02/14/20 09:00 02/17/20 09:35 Pioglitazone Hcl 15 Mg Tab PO Not Given DAILY IRIS Polyethylene Glycol 17 gm 02/18/20 09:30 02/20/20 09:59 Polyethylene Glycol 3350 17 Gm Packet PO 17 gm DAILYPRN PRN Administration Constipation Polyethylene Glycol 17 gm 02/21/20 09:00 02/21/20 09:28 Polyethylene Glycol 3350 17 Gm Packet PO Not Given BID IRIS Promethazine HCl 12.5 mg 02/21/20 09:00 02/21/20 09:35 Promethazine Hcl 25 Mg/Ml Vial IM/IV 02/21/20 11:00 12.5 mg ONE IRIS Administration Scopolamine 1.5 mg 02/21/20 09:00 02/21/20 09:33 Scopolamine 1.5 Mg/72 Hour Patch TD 1.5 mg Q3D IRIS Administration Senna/Docusate Sodium 1 tab 02/18/20 09:30 02/20/20 21:12 Senokot S 8.6-50 Mg Tab PO 1 tab BIDPRN PRN Administration Constipation Sodium Chloride 10 ml 02/12/20 22:56 02/20/20 21:12 Flush - Normal Saline 10 Ml Syringe IVF 10 ml PRN PRN Administration Saline Flush - Exam General Appearance: awake alert General - other findings: obese Eye: anicteric sclera ENT: normocephalic atraumatic Neck: symmetric, no JVD Respiratory: no wheezes, no rales, no ronchi, normal chest expansion, no tachypnea Cardiovascular: RRR Gastrointestinal: soft, non-tender, non-distended, normal bowel sounds Extremities: no edema Neurological: CN's grossly intact, no focal deficits PSYCH: A&O x 3 Nephrology Results - Labs Result Diagrams: 02/21/20 04:17 02/21/20 04:17 Lab results: WBC 4.9 thou/uL (4.8-10.8) 02/21/20 04:17 Hgb 11.9 g/dL (12.0-16.0) L 02/21/20 04:17 Hct 36.6 % (36.0-47.0) 02/21/20 04:17 MCV 89.6 fL (78.0-98.0) 02/21/20 04:17 Plt Count 386 thou/uL (130-400) 02/21/20 04:17 Neutrophils % 75.4 % (42.0-75.0) H 02/14/20 08:34 Band Neuts % (Manual) 1 % (5-11) L 02/21/20 04:17 ABG pH 7.42 (7.35-7.45) 02/13/20 08:30 ABG pCO2 32.9 mmHg (35.0-45.0) L 02/13/20 08:30 ABG pO2 93.6 mmHg (80.0-100.0) 02/13/20 08:30 Sodium 138 mmol/L (136-145) 02/21/20 04:17 Potassium 3.8 mmol/L (3.5-5.1) 02/21/20 04:17 Chloride 101 mmol/L (98-107) 02/21/20 04:17 Carbon Dioxide 26 mmol/L (22-29) 02/21/20 04:17 BUN 12 mg/dL (9.8-20.1) 02/21/20 04:17 Creatinine 0.78 mg/dL (0.6-1.1) 02/21/20 04:17 Glucose 104 mg/dL (70-105) 02/21/20 04:17 Calcium 9.8 mg/dL (7.8-10.44) 02/21/20 04:17 Total Bilirubin 0.4 mg/dL (0.2-1.2) 02/12/20 21:12 AST 25 U/L (5-34) 02/12/20 21:12 ALT 16 U/L (8-55) 02/12/20 21:12 Alkaline Phosphatase 47 U/L (40-110) 02/12/20 21:12 Troponin I 0.011 ng/mL (< 0.028) 02/12/20 21:12 B-Natriuretic Peptide 389.3 pg/mL (0-100) H 02/15/20 08:06 Serum Total Protein 6.9 g/dL (6.0-8.3) 02/12/20 21:12 Albumin 3.9 g/dL (3.5-5.0) 02/12/20 21:12 Lipase 18 U/L (8-78) 02/12/20 21:12 Urine Ketones Negative mg/dL (Negative) 02/19/20 01:37 Urine Blood Negative (Negative) 02/19/20 01:37 Urine Nitrite Negative (Negative) 02/19/20 01:37 Ur Leukocyte Esterase Negative Emelyn/uL (Negative) 02/19/20 01:37 Urine RBC 0-3 HPF (0-3) 02/19/20 01:37 Urine WBC 0-3 HPF (0-3) 02/19/20 01:37 Ur Squamous Epith Cells 0-3 HPF (0-3) 02/19/20 01:37 Urine Bacteria None Seen HPF (None Seen) 02/19/20 01:37 Sodium 138 mmol/L (136-145) 02/21/20 04:17 Potassium 3.8 mmol/L (3.5-5.1) 02/21/20 04:17 Chloride 101 mmol/L (98-107) 02/21/20 04:17 Carbon Dioxide 26 mmol/L (22-29) 02/21/20 04:17 Anion Gap 15 mmol/L (10-20) 02/21/20 04:17 BUN 12 mg/dL (9.8-20.1) 02/21/20 04:17 Creatinine 0.78 mg/dL (0.6-1.1) 02/21/20 04:17 Glucose 104 mg/dL (70-105) 02/21/20 04:17 Calcium 9.8 mg/dL (7.8-10.44) 02/21/20 04:17 Magnesium 1.8 mg/dL (1.6-2.6) 02/12/20 21:12 Albumin 3.9 g/dL (3.5-5.0) 02/12/20 21:12 Nephrology AP PN - Plan HTN: Severe with recent intracranial bleed. Hypertensive since age 20 concerning for secondary HTN. CTA abdomen showed left renal artery take off atherosclerosis which was thought not to be significant. BP has been stable but inadequate controlled. Primary hyperaldosteronism is a concern Obesity Constipation. Plan Hold HCTZ due to nausea and vomiting. Restart if oral intake stabilizes. Increase Nifedipine to 120 mg daily. Continue Losartan, metoprol at current dose. Await PAR ratio Start miralax for contipation.
[2020-02-21] MEDS: Senokot S 8.6-50 MG TAB PO PRN (11:12)
[2020-02-21] MEDS: Polyethylene Glycol 3350 17 GM Packet PO PRN (11:12)
[2020-02-21] MEDS ORDERED: NIFEdipine XL 30 MG TAB PO SCH (11:30)
--- NOTE | 2020-02-21 13:43 | PDOC.HOSPP ---
- Subjective Encounter Date: 02/21/20 Subjective: The patient does not have any new complaints. Her last bowel movement was 2 days ago. - Objective Vital Signs & Weight: Vital Signs (12 hours) Temp Pulse Pulse Pulse Resp BP BP 02/21/20 12:35 75 157/81 H 02/21/20 11:12 98.5 F 77 14 02/21/20 09:53 92 72 148/74 H 02/21/20 09:39 73 176/81 H 02/21/20 08:30 02/21/20 08:28 02/21/20 07:28 98.4 F 73 16 02/21/20 04:00 98.0 F 70 16 BP BP Pulse Ox 02/21/20 12:35 02/21/20 11:12 150/76 H 94 L 02/21/20 09:53 167/81 H 02/21/20 09:39 02/21/20 08:30 93 L 02/21/20 08:28 93 L 02/21/20 07:28 154/79 H 93 L 02/21/20 04:00 145/76 H 94 L Weight Admit Weight 299 lb Weight 300 lb 4.8 oz Most Recent Monitor Data Heart Rate from ECG 68 NIBP 148/85 NIBP BP-Mean 106 Respiration from ECG 14 SpO2 97 I&O: 02/20/20 02/21/20 02/22/20 06:59 06:59 06:59 Intake Total 600 760 Output Total 1450 4375 Balance -850 -8694 Result Diagrams: 02/21/20 04:17 02/21/20 04:17 Additional Labs: Accuchecks 02/21/20 02/21/20 02/20/20 10:36 04:58 16:43 POC Glucose 111 H 114 H 109 H Hospitalist ROS - Medication Medications: Active Medications Generic Name Dose Route Start Last Admin Trade Name Freq PRN Reason Stop Dose Admin Acetaminophen 650 mg 02/19/20 17:07 02/19/20 17:17 Acetaminophen 325 Mg Tab PO 650 mg Q6H PRN Administration Headache/Fever or Pain Acetaminophen/Codeine Phosphate 1 tab 02/16/20 14:04 02/19/20 05:11 Acetaminophen/Codeine 30-300mg Tablet PO 1 tab Q4H PRN Administration Moderate Pain (4-6) Hydrocodone Bitart/Acetaminophen 1 tab 02/16/20 14:04 02/21/20 05:43 Hydrocodone/Acetaminophen 5/325 Mg Tablet PO 1 tab Q6H PRN Administration Severe Pain (7-10) Bupropion HCl 300 mg 02/14/20 09:00 02/21/20 08:36 Bupropion 150 Mg Xl Tab PO 300 mg DAILY IRIS Administration Bupropion HCl 300 mg 02/21/20 10:30 02/21/20 11:16 Bupropion 150 Mg Xl Tab PO 02/21/20 14:00 300 mg NOW IRIS Administration Fenofibrate 145 mg 02/14/20 09:00 02/17/20 09:34 Fenofibrate Nanocrystallized 145 Mg Tab PO Not Given DAILY IRIS Fluoxetine HCl 40 mg 02/14/20 09:00 02/21/20 08:35 Fluoxetine Hcl 20 Mg Cap PO 40 mg DAILY IRIS Administration Fluoxetine HCl 40 mg 02/21/20 10:30 02/21/20 11:16 Fluoxetine Hcl 20 Mg Cap PO 02/21/20 14:00 40 mg NOW IRIS Administration Gabapentin 1,200 mg 02/13/20 15:00 02/21/20 08:33 Gabapentin 300 Mg Cap PO 1,200 mg TID IRIS Administration Gabapentin 1,200 mg 02/21/20 10:30 02/21/20 11:14 Gabapentin 400 Mg Cap PO 02/21/20 14:00 1,200 mg NOW IRIS Administration Hydralazine HCl 20 mg 02/17/20 10:15 02/20/20 17:42 Hydralazine 20 Mg/Ml Vial SLOW IVP 20 mg Q4H PRN Administration SBP GREATER THAN 160 Hydrochlorothiazide 25 mg 02/19/20 09:00 02/21/20 08:35 Hydrochlorothiazide 25 Mg Tab PO 25 mg DAILY IRIS Administration Insulin Human Lispro 0 units 02/13/20 09:44 02/16/20 12:41 Humalog 300 Units/3 Ml Vial SC 2 unit .MILD SLIDING SCALE PRN Administration Mild Correctional Scale Labetalol HCl 10 mg 02/20/20 13:00 02/21/20 09:39 Labetalol Hcl 100 Mg/20 Ml Vial SLOW IVP 10 mg Q4H PRN Administration Sbp Greater Than 150 Losartan Potassium 100 mg 02/21/20 09:00 02/21/20 08:35 Losartan 25 Mg Tab PO 100 mg DAILY IIRS Administration Losartan Potassium 100 mg 02/21/20 10:30 02/21/20 11:13 Losartan 25 Mg Tab PO 02/21/20 14:00 100 mg NOW IRIS Administration Metoprolol Succinate 50 mg 02/20/20 21:00 02/21/20 08:36 Metoprolol Succinate Xl 50 Mg Tab PO 50 mg BID IRIS Administration Metoprolol Succinate 50 mg 02/21/20 10:30 02/21/20 11:17 Metoprolol Succinate Xl 50 Mg Tab PO 02/21/20 14:00 50 mg NOW IRIS Administration Morphine Sulfate 2 mg 02/16/20 14:03 02/16/20 18:29 Morphine 2 Mg/Ml Vial SLOW IVP 2 mg Q1H PRN Administration Severe Pain (7-10) Niacin 1,000 mg 02/14/20 09:00 02/17/20 09:35 Niacin Er 500 Mg Tab PO Not Given DAILY IRIS Nifedipine 90 mg 02/21/20 09:00 02/21/20 08:35 Nifedipine Xl 90 Mg Tab PO 90 mg DAILY IRIS Administration Nifedipine 90 mg 02/21/20 10:30 02/21/20 11:16 Nifedipine Xl 90 Mg Tab PO 02/21/20 14:00 90 mg NOW IRIS Administration Nifedipine 30 mg 02/21/20 11:30 02/21/20 12:35 Nifedipine Xl 30 Mg Tab PO 02/21/20 14:00 30 mg NOW IRIS Administration Ondansetron HCl 4 mg 02/15/20 12:19 02/21/20 12:35 Ondansetron Pf 4 Mg/2 Ml Vial IVP 4 mg Q4H PRN Administration Nausea/Vomiting Doxycycline 50 Mg 0 each 02/21/20 09:00 02/21/20 08:36 Tab PO 1 each DAILY IRIS Administration Doxycycline 50 Mg 0 each 02/21/20 10:30 02/21/20 11:18 Tab PO 02/21/20 14:00 1 each NOW IRIS Administration Pioglitazone HCl 30 mg 02/14/20 09:00 02/17/20 09:35 Pioglitazone Hcl 15 Mg Tab PO Not Given DAILY IRIS Polyethylene Glycol 17 gm 02/18/20 09:30 02/21/20 11:12 Polyethylene Glycol 3350 17 Gm Packet PO 17 gm DAILYPRN PRN Administration Constipation Polyethylene Glycol 17 gm 02/21/20 09:00 02/21/20 09:28 Polyethylene Glycol 3350 17 Gm Packet PO Not Given BID IRIS Scopolamine 1.5 mg 02/21/20 09:00 02/21/20 09:33 Scopolamine 1.5 Mg/72 Hour Patch TD 1.5 mg Q3D IRIS Administration Senna/Docusate Sodium 1 tab 02/18/20 09:30 02/21/20 11:12 Senokot S 8.6-50 Mg Tab PO 1 tab BIDPRN PRN Administration Constipation Sodium Chloride 10 ml 02/12/20 22:56 02/20/20 21:12 Flush - Normal Saline 10 Ml Syringe IVF 10 ml PRN PRN Administration Saline Flush - Exam ENT: normocephalic atraumatic Neck: supple Heart: RRR Respiratory: normal chest expansion, no tachypnea Gastrointestinal: soft Extremities: no cyanosis, no clubbing Neurological: cranial nerve grossly intact Hosp A/P (1) Cerebellar hemorrhage, acute Code(s): I61.4 - NONTRAUMATIC INTRACEREBRAL HEMORRHAGE IN CEREBELLUM Status: Acute (2) Headache Code(s): R51.9 - HEADACHE, UNSPECIFIED Status: Acute (3) Cerebral edema Code(s): G93.6 - CEREBRAL EDEMA Status: Acute (4) DM type 2 (diabetes mellitus, type 2) Status: Acute Qualifiers: Diabetes mellitus termination clerk insulin use: without intermediate use Diabetes mellitus complication status: without complication Qualified Code(s): E11.9 - Type 2 diabetes mellitus without complications - Plan Patient is alert and oriented. Her blood pressure control appears to be slightly better than yesterday with systolic ranging between one 50-160. She had nausea and vomiting today and could not tolerate her medications in the morning. Scopolamine patch and Phenergan were prescribed. Nifedipine dose increased to 120 mg daily. Continue losartan 100 mg orally daily and Toprol-XL 50 mg orally daily. CTA of the abdomen did not show significant renal artery stenosis. No evidence of neurological deficits at this point. MiraLAX and Senokot for constipation. We will attempt to remove the Kwan catheter tomorrow.
[2020-02-22] MEDS: HYDROcodone/Acetaminophen 5/325 mg Tablet PO PRN ×2 (05:25→15:28)
[2020-02-22 05:55] LABS: Anion Gap 17 mmol/L (10-20); BUN (Urea Nitrogen) 16 mg/dL (9.8-20.1); Calc. Creatinine Clearance 143 mL/min (70-130); Calcium 9.6 mg/dL (7.8-10.44); Carbon Dioxide 25 mmol/L (22-29); Chloride 102 mmol/L (98-107); Estimated GFR-MDRD 68; Glucose 95 mg/dL (70-105); Potassium 3.7 mmol/L (3.5-5.1); Sodium 140 mmol/L (136-145)
[2020-02-22 06:01] LABS: Band 9 % (5-11); Eosinophils 3 % (0-10); Hemoglobin 12.4 g/dL (12.0-16.0); Lymphocytes 21 % (21-51); MDiff Complete? YES; Mean Corpuscular HGB CONC 30.4 g/dL (32.0-36.0); Mean Corpuscular Hemoglobin 27.2 pg (27.0-31.0); Mean Corpuscular Volume 89.4 fL (78.0-98.0); Mean Platelet Volume 6.7 fL (7.4-10.4); Monocytes 6 % (0-10); Neutrophil 61 % (42-75); Platelet Count 456 thou/uL (130-400); RBC Distribution Width 13.2 % (11.5-14.5); Red Blood Cell (RBC) Count 4.56 mill/uL (4.20-5.40); White Blood Cell (WBC) Count 4.8 thou/uL (4.8-10.8)
[2020-02-22] MEDS: Polyethylene Glycol 3350 17 GM Packet PO SCH ×2 (08:12→20:25)
[2020-02-22] MEDS: DOXYCYCLINE 50 MG PO SCH (08:14)
[2020-02-22] MEDS: Gabapentin 300 MG CAP PO SCH ×3 (08:14→20:24)
[2020-02-22] MEDS: Pioglitazone HCl 15 MG TAB PO SCH (08:14)
[2020-02-22] MEDS: Losartan 25 MG TAB PO SCH (08:16)
[2020-02-22] MEDS: Spironolactone 25 MG TAB PO SCH (08:17)
[2020-02-22] MEDS: NIFEdipine XL 90 MG TAB PO SCH (08:18)
[2020-02-22] MEDS: Bupropion 150 MG XL TAB PO SCH (08:18)
[2020-02-22] MEDS: FLUoxetine HCl 20 MG CAP PO SCH (08:18)
[2020-02-22] MEDS: Hydrochlorothiazide 25 MG TAB PO SCH (10:11)
--- NOTE | 2020-02-22 14:13 | PDOC.NEPPN ---
- Subjective Encounter Date: 02/22/20 Subjective: Seen in follow up for severe HTN associated with intracranial bleed. Feeling better. Denied nausea, vomiting or headache. Had BM earlier. - Objective Vital Signs & Weight: Vital Signs (12 hours) Temp Pulse Pulse Pulse Resp BP BP 02/22/20 12:23 98.0 F 71 16 02/22/20 09:26 69 67 135/70 138/71 02/22/20 08:11 02/22/20 07:41 98.3 F 82 16 02/22/20 03:47 98.8 F 70 16 BP Pulse Ox 02/22/20 12:23 127/70 92 L 02/22/20 09:26 02/22/20 08:11 93 L 02/22/20 07:41 162/73 H 93 L 02/22/20 03:47 123/59 L 93 L Weight Admit Weight 299 lb Weight 276 lb 9.6 oz Most Recent Monitor Data Heart Rate from ECG 68 NIBP 148/85 NIBP BP-Mean 106 Respiration from ECG 14 SpO2 97 I&O: 02/21/20 02/22/20 02/23/20 06:59 06:59 06:59 Intake Total 760 720 Output Total 4379 5698 Balance -4211 -2626 Result Diagrams: 02/22/20 05:22 02/22/20 05:22 Additional Labs: Accuchecks 02/22/20 02/22/20 02/21/20 10:24 05:15 20:37 POC Glucose 107 H 98 97 02/21/20 17:11 POC Glucose 112 H Nephrology ROS - Medication Medications: Active Medications Generic Name Dose Route Start Last Admin Trade Name Jonathanq PRN Reason Stop Dose Admin Acetaminophen 650 mg 02/19/20 17:07 02/19/20 17:17 Acetaminophen 325 Mg Tab PO 650 mg Q6H PRN Administration Headache/Fever or Pain Acetaminophen/Codeine Phosphate 1 tab 02/16/20 14:04 02/19/20 05:11 Acetaminophen/Codeine 30-300mg Tablet PO 1 tab Q4H PRN Administration Moderate Pain (4-6) Hydrocodone Bitart/Acetaminophen 1 tab 02/16/20 14:04 02/22/20 05:25 Hydrocodone/Acetaminophen 5/325 Mg Tablet PO 1 tab Q6H PRN Administration Severe Pain (7-10) Bupropion HCl 300 mg 02/14/20 09:00 02/22/20 08:18 Bupropion 150 Mg Xl Tab PO 300 mg DAILY IRIS Administration Fenofibrate 145 mg 02/14/20 09:00 02/17/20 09:34 Fenofibrate Nanocrystallized 145 Mg Tab PO Not Given DAILY IRIS Fluoxetine HCl 40 mg 02/14/20 09:00 02/22/20 08:18 Fluoxetine Hcl 20 Mg Cap PO 40 mg DAILY IRIS Administration Gabapentin 1,200 mg 02/13/20 15:00 02/22/20 08:14 Gabapentin 300 Mg Cap PO 1,200 mg TID IRIS Administration Hydralazine HCl 20 mg 02/17/20 10:15 02/20/20 17:42 Hydralazine 20 Mg/Ml Vial SLOW IVP 20 mg Q4H PRN Administration SBP GREATER THAN 160 Hydrochlorothiazide 25 mg 02/19/20 09:00 02/22/20 10:11 Hydrochlorothiazide 25 Mg Tab PO 25 mg DAILY IRIS Administration Insulin Human Lispro 0 units 02/13/20 09:44 02/16/20 12:41 Humalog 300 Units/3 Ml Vial SC 2 unit .MILD SLIDING SCALE PRN Administration Mild Correctional Scale Labetalol HCl 10 mg 02/20/20 13:00 02/21/20 09:39 Labetalol Hcl 100 Mg/20 Ml Vial SLOW IVP 10 mg Q4H PRN Administration Sbp Greater Than 150 Losartan Potassium 100 mg 02/21/20 09:00 02/22/20 08:16 Losartan 25 Mg Tab PO 100 mg DAILY IRIS Administration Metoprolol Succinate 50 mg 02/20/20 21:00 02/22/20 08:16 Metoprolol Succinate Xl 50 Mg Tab PO 50 mg BID IRIS Administration Morphine Sulfate 2 mg 02/16/20 14:03 02/16/20 18:29 Morphine 2 Mg/Ml Vial SLOW IVP 2 mg Q1H PRN Administration Severe Pain (7-10) Niacin 1,000 mg 02/14/20 09:00 02/17/20 09:35 Niacin Er 500 Mg Tab PO Not Given DAILY IRIS Nifedipine 90 mg 02/21/20 09:00 02/22/20 08:18 Nifedipine Xl 90 Mg Tab PO 90 mg DAILY IRIS Administration Ondansetron HCl 4 mg 02/15/20 12:19 02/21/20 12:35 Ondansetron Pf 4 Mg/2 Ml Vial IVP 4 mg Q4H PRN Administration Nausea/Vomiting Doxycycline 50 Mg 0 each 02/21/20 09:00 02/22/20 08:14 Tab PO 1 each DAILY IRIS Administration Pioglitazone HCl 30 mg 02/14/20 09:00 02/22/20 08:14 Pioglitazone Hcl 15 Mg Tab PO 30 mg DAILY IRIS Administration Polyethylene Glycol 17 gm 02/18/20 09:30 02/21/20 11:12 Polyethylene Glycol 3350 17 Gm Packet PO 17 gm DAILYPRN PRN Administration Constipation Polyethylene Glycol 17 gm 02/21/20 09:00 02/22/20 08:12 Polyethylene Glycol 3350 17 Gm Packet PO 17 gm BID IRIS Administration Scopolamine 1.5 mg 02/21/20 09:00 02/21/20 09:33 Scopolamine 1.5 Mg/72 Hour Patch TD 1.5 mg Q3D IRIS Administration Senna/Docusate Sodium 1 tab 02/18/20 09:30 02/21/20 11:12 Senokot S 8.6-50 Mg Tab PO 1 tab BIDPRN PRN Administration Constipation Sodium Chloride 10 ml 02/12/20 22:56 02/21/20 21:47 Flush - Normal Saline 10 Ml Syringe IVF 10 ml PRN PRN Administration Saline Flush Spironolactone 50 mg 02/22/20 08:00 02/22/20 08:17 Spironolactone 25 Mg Tab PO 50 mg QAM-WM IRIS Administration - Exam General Appearance: awake alert Eye: anicteric sclera ENT: normocephalic atraumatic Neck: supple, symmetric, no JVD Respiratory: CTAB Cardiovascular: RRR Gastrointestinal: soft, non-tender, non-distended, normal bowel sounds Gastrointestinal - other findings: obese Extremities: no cyanosis, no edema Neurological: CN's grossly intact, no focal deficits Musculoskeletal: generalized weakness PSYCH: A&O x 3 Nephrology Results - Labs Result Diagrams: 02/22/20 05:22 02/22/20 05:22 Lab results: WBC 4.8 thou/uL (4.8-10.8) 02/22/20 05:22 Hgb 12.4 g/dL (12.0-16.0) 02/22/20 05:22 Hct 40.7 % (36.0-47.0) 02/22/20 05:22 MCV 89.4 fL (78.0-98.0) 02/22/20 05:22 Plt Count 456 thou/uL (130-400) H 02/22/20 05:22 Neutrophils % 75.4 % (42.0-75.0) H 02/14/20 08:34 Band Neuts % (Manual) 9 % (5-11) 02/22/20 05:22 ABG pH 7.42 (7.35-7.45) 02/13/20 08:30 ABG pCO2 32.9 mmHg (35.0-45.0) L 02/13/20 08:30 ABG pO2 93.6 mmHg (80.0-100.0) 02/13/20 08:30 Sodium 140 mmol/L (136-145) 02/22/20 05:22 Potassium 3.7 mmol/L (3.5-5.1) 02/22/20 05:22 Chloride 102 mmol/L (98-107) 02/22/20 05:22 Carbon Dioxide 25 mmol/L (22-29) 02/22/20 05:22 BUN 16 mg/dL (9.8-20.1) 02/22/20 05:22 Creatinine 0.86 mg/dL (0.6-1.1) 02/22/20 05:22 Glucose 95 mg/dL (70-105) 02/22/20 05:22 Calcium 9.6 mg/dL (7.8-10.44) 02/22/20 05:22 Total Bilirubin 0.4 mg/dL (0.2-1.2) 02/12/20 21:12 AST 25 U/L (5-34) 02/12/20 21:12 ALT 16 U/L (8-55) 02/12/20 21:12 Alkaline Phosphatase 47 U/L (40-110) 02/12/20 21:12 Troponin I 0.011 ng/mL (< 0.028) 02/12/20 21:12 B-Natriuretic Peptide 389.3 pg/mL (0-100) H 02/15/20 08:06 Serum Total Protein 6.9 g/dL (6.0-8.3) 02/12/20 21:12 Albumin 3.9 g/dL (3.5-5.0) 02/12/20 21:12 Lipase 18 U/L (8-78) 02/12/20 21:12 Urine Ketones Negative mg/dL (Negative) 02/19/20 01:37 Urine Blood Negative (Negative) 02/19/20 01:37 Urine Nitrite Negative (Negative) 02/19/20 01:37 Ur Leukocyte Esterase Negative Emelyn/uL (Negative) 02/19/20 01:37 Urine RBC 0-3 HPF (0-3) 02/19/20 01:37 Urine WBC 0-3 HPF (0-3) 02/19/20 01:37 Ur Squamous Epith Cells 0-3 HPF (0-3) 02/19/20 01:37 Urine Bacteria None Seen HPF (None Seen) 02/19/20 01:37 Sodium 140 mmol/L (136-145) 02/22/20 05:22 Potassium 3.7 mmol/L (3.5-5.1) 02/22/20 05:22 Chloride 102 mmol/L (98-107) 02/22/20 05:22 Carbon Dioxide 25 mmol/L (22-29) 02/22/20 05:22 Anion Gap 17 mmol/L (10-20) 02/22/20 05:22 BUN 16 mg/dL (9.8-20.1) 02/22/20 05:22 Creatinine 0.86 mg/dL (0.6-1.1) 02/22/20 05:22 Glucose 95 mg/dL (70-105) 02/22/20 05:22 Calcium 9.6 mg/dL (7.8-10.44) 02/22/20 05:22 Magnesium 1.8 mg/dL (1.6-2.6) 02/12/20 21:12 Albumin 3.9 g/dL (3.5-5.0) 02/12/20 21:12 Nephrology AP PN - Plan HTN: Severe with recent intracranial bleed. Hypertensive since age 20 concerning for secondary HTN. CTA abdomen showed left renal artery take off atherosclerosis which was thought not to be significant. BP has been stable but inadequate cont rolled. Primary or secondary hyperaldosteronism is a concern Obesity Constipation. Plan Start spironolactone for hyperaldosterone state. Restart HCTZ Continue Losartan, Nifedipine, and metoprol at current dose. Await PAR ratio Care plan discussed with patient and spouse at bedside
--- NOTE | 2020-02-22 17:25 | PDOC.HOSPP ---
- Subjective Encounter Date: 02/22/20 Subjective: She denies any new complaints. - Objective Vital Signs & Weight: Vital Signs (12 hours) Temp Pulse Pulse Pulse Resp BP BP 02/22/20 15:50 98.7 F 69 18 02/22/20 12:23 98.0 F 71 16 02/22/20 09:26 69 67 135/70 138/71 02/22/20 08:11 02/22/20 07:41 98.3 F 82 16 BP Pulse Ox 02/22/20 15:50 148/71 H 96 02/22/20 12:23 127/70 92 L 02/22/20 09:26 02/22/20 08:11 93 L 02/22/20 07:41 162/73 H 93 L Weight Admit Weight 299 lb Weight 276 lb 9.6 oz Most Recent Monitor Data Heart Rate from ECG 68 NIBP 148/85 NIBP BP-Mean 106 Respiration from ECG 14 SpO2 97 I&O: 02/21/20 02/22/20 02/23/20 06:59 06:59 06:59 Intake Total 760 720 Output Total 9503 3350 700 Balance -3615 -2630 -700 Result Diagrams: 02/22/20 05:22 02/22/20 05:22 Additional Labs: Accuchecks 02/22/20 02/22/20 02/22/20 16:22 10:24 05:15 POC Glucose 89 107 H 98 02/21/20 20:37 POC Glucose 97 Hospitalist ROS - Medication Medications: Active Medications Generic Name Dose Route Start Last Admin Trade Name Freq PRN Reason Stop Dose Admin Acetaminophen 650 mg 02/19/20 17:07 02/19/20 17:17 Acetaminophen 325 Mg Tab PO 650 mg Q6H PRN Administration Headache/Fever or Pain Acetaminophen/Codeine Phosphate 1 tab 02/16/20 14:04 02/19/20 05:11 Acetaminophen/Codeine 30-300mg Tablet PO 1 tab Q4H PRN Administration Moderate Pain (4-6) Hydrocodone Bitart/Acetaminophen 1 tab 02/16/20 14:04 02/22/20 15:28 Hydrocodone/Acetaminophen 5/325 Mg Tablet PO 1 tab Q6H PRN Administration Severe Pain (7-10) Bupropion HCl 300 mg 02/14/20 09:00 02/22/20 08:18 Bupropion 150 Mg Xl Tab PO 300 mg DAILY IRIS Administration Fenofibrate 145 mg 02/14/20 09:00 02/17/20 09:34 Fenofibrate Nanocrystallized 145 Mg Tab PO Not Given DAILY IRIS Fluoxetine HCl 40 mg 02/14/20 09:00 02/22/20 08:18 Fluoxetine Hcl 20 Mg Cap PO 40 mg DAILY IRIS Administration Gabapentin 1,200 mg 02/13/20 15:00 02/22/20 15:29 Gabapentin 300 Mg Cap PO 1,200 mg TID IRIS Administration Hydralazine HCl 20 mg 02/17/20 10:15 02/20/20 17:42 Hydralazine 20 Mg/Ml Vial SLOW IVP 20 mg Q4H PRN Administration SBP GREATER THAN 160 Hydrochlorothiazide 25 mg 02/19/20 09:00 02/22/20 10:11 Hydrochlorothiazide 25 Mg Tab PO 25 mg DAILY IRIS Administration Insulin Human Lispro 0 units 02/13/20 09:44 02/16/20 12:41 Humalog 300 Units/3 Ml Vial SC 2 unit .MILD SLIDING SCALE PRN Administration Mild Correctional Scale Labetalol HCl 10 mg 02/20/20 13:00 02/21/20 09:39 Labetalol Hcl 100 Mg/20 Ml Vial SLOW IVP 10 mg Q4H PRN Administration Sbp Greater Than 150 Losartan Potassium 100 mg 02/21/20 09:00 02/22/20 08:16 Losartan 25 Mg Tab PO 100 mg DAILY IRIS Administration Metoprolol Succinate 50 mg 02/20/20 21:00 02/22/20 08:16 Metoprolol Succinate Xl 50 Mg Tab PO 50 mg BID IRIS Administration Morphine Sulfate 2 mg 02/16/20 14:03 02/16/20 18:29 Morphine 2 Mg/Ml Vial SLOW IVP 2 mg Q1H PRN Administration Severe Pain (7-10) Niacin 1,000 mg 02/14/20 09:00 02/17/20 09:35 Niacin Er 500 Mg Tab PO Not Given DAILY IRIS Nifedipine 90 mg 02/21/20 09:00 02/22/20 08:18 Nifedipine Xl 90 Mg Tab PO 90 mg DAILY IRIS Administration Ondansetron HCl 4 mg 02/15/20 12:19 02/21/20 12:35 Ondansetron Pf 4 Mg/2 Ml Vial IVP 4 mg Q4H PRN Administration Nausea/Vomiting Doxycycline 50 Mg 0 each 02/21/20 09:00 02/22/20 08:14 Tab PO 1 each DAILY IRIS Administration Pioglitazone HCl 30 mg 02/14/20 09:00 02/22/20 08:14 Pioglitazone Hcl 15 Mg Tab PO 30 mg DAILY IRIS Administration Polyethylene Glycol 17 gm 02/18/20 09:30 02/21/20 11:12 Polyethylene Glycol 3350 17 Gm Packet PO 17 gm DAILYPRN PRN Administration Constipation Polyethylene Glycol 17 gm 02/21/20 09:00 02/22/20 08:12 Polyethylene Glycol 3350 17 Gm Packet PO 17 gm BID IRIS Administration Scopolamine 1.5 mg 02/21/20 09:00 02/21/20 09:33 Scopolamine 1.5 Mg/72 Hour Patch TD 1.5 mg Q3D IRIS Administration Senna/Docusate Sodium 1 tab 02/18/20 09:30 02/21/20 11:12 Senokot S 8.6-50 Mg Tab PO 1 tab BIDPRN PRN Administration Constipation Sodium Chloride 10 ml 02/12/20 22:56 02/21/20 21:47 Flush - Normal Saline 10 Ml Syringe IVF 10 ml PRN PRN Administration Saline Flush Spironolactone 50 mg 02/22/20 08:00 02/22/20 08:17 Spironolactone 25 Mg Tab PO 50 mg QAM-WM IRIS Administration - Exam General Appearance: awake alert ENT: normocephalic atraumatic Neck: supple, no JVD Heart: RRR Respiratory: normal chest expansion, no tachypnea Extremities: no cyanosis, no clubbing Neurological: cranial nerve grossly intact, no focal deficits Hosp A/P (1) Cerebellar hemorrhage, acute Code(s): I61.4 - NONTRAUMATIC INTRACEREBRAL HEMORRHAGE IN CEREBELLUM Status: Acute (2) Headache Code(s): R51.9 - HEADACHE, UNSPECIFIED Status: Acute (3) Cerebral edema Code(s): G93.6 - CEREBRAL EDEMA Status: Acute (4) DM type 2 (diabetes mellitus, type 2) Status: Acute Qualifiers: Diabetes mellitus mcfp insulin use: without mcfp use Diabetes mellitus complication status: without complication Qualified Code(s): E11.9 - Type 2 diabetes mellitus without complications - Plan Patient is alert and oriented. Hemorragic CVA. No intervention per neurosurgery. Repeat CT head is unchanged. Her BP is controlled on the current regimen. CTA of the abdomen did not show significant renal artery stenosis. No evidence of neurological deficits at this point. Constipation improved. DC avila cath. Cont PT&OT. Pending placement.
[2020-02-23 05:56] LABS: Hemoglobin 12.3 g/dL (12.0-16.0); Mean Corpuscular HGB CONC 32.1 g/dL (32.0-36.0); Mean Corpuscular Hemoglobin 28.6 pg (27.0-31.0); Mean Corpuscular Volume 89.1 fL (78.0-98.0); Mean Platelet Volume 6.8 fL (7.4-10.4); Platelet Count 434 thou/uL (130-400); RBC Distribution Width 13.2 % (11.5-14.5); White Blood Cell (WBC) Count 4.9 thou/uL (4.8-10.8)
[2020-02-23 06:13] LABS: Anion Gap 18 mmol/L (10-20); BUN (Urea Nitrogen) 23 mg/dL (9.8-20.1); Calc. Creatinine Clearance 129 mL/min (70-130); Calcium 9.5 mg/dL (7.8-10.44); Carbon Dioxide 24 mmol/L (22-29); Chloride 102 mmol/L (98-107); Estimated GFR-MDRD 61; Glucose 89 mg/dL (70-105); Potassium 3.7 mmol/L (3.5-5.1); Sodium 140 mmol/L (136-145)
[2020-02-23 06:20] LABS: Band 9 % (5-11); Eosinophils 3 % (0-10); Lymphocytes 15 % (21-51); MDiff Complete? YES; Monocytes 11 % (0-10); Neutrophil 62 % (42-75)
--- NOTE | 2020-02-23 07:54 | PDOC.NEPPN ---
- Subjective Encounter Date: 02/23/20 Subjective: Seen in follow up for malignant HTN associated with intracranial bleed. Complaining of mild headache. Feeling better otherwise - Objective Vital Signs & Weight: Vital Signs (12 hours) Temp Pulse Resp BP Pulse Ox 02/23/20 07:00 98.2 F 66 16 189/89 H 93 L 02/23/20 03:00 98.6 F 60 16 143/79 H 93 L 02/22/20 23:00 98.9 F 64 16 143/61 H 93 L Weight Admit Weight 299 lb Weight 275 lb 4.8 oz Most Recent Monitor Data Heart Rate from ECG 68 NIBP 148/85 NIBP BP-Mean 106 Respiration from ECG 14 SpO2 97 I&O: 02/22/20 02/23/20 02/24/20 06:59 06:59 06:59 Intake Total 720 1360 Output Total 3359 2425 Balance -0442 -2297 Result Diagrams: 02/23/20 05:39 02/23/20 05:39 Additional Labs: Accuchecks 02/22/20 02/22/20 02/22/20 21:06 16:22 10:24 POC Glucose 90 89 107 H Nephrology ROS - Medication Medications: Active Medications Generic Name Dose Route Start Last Admin Trade Name Freq PRN Reason Stop Dose Admin Acetaminophen 650 mg 02/19/20 17:07 02/19/20 17:17 Acetaminophen 325 Mg Tab PO 650 mg Q6H PRN Administration Headache/Fever or Pain Acetaminophen/Codeine Phosphate 1 tab 02/16/20 14:04 02/19/20 05:11 Acetaminophen/Codeine 30-300mg Tablet PO 1 tab Q4H PRN Administration Moderate Pain (4-6) Hydrocodone Bitart/Acetaminophen 1 tab 02/16/20 14:04 02/22/20 15:28 Hydrocodone/Acetaminophen 5/325 Mg Tablet PO 1 tab Q6H PRN Administration Severe Pain (7-10) Bupropion HCl 300 mg 02/14/20 09:00 02/22/20 08:18 Bupropion 150 Mg Xl Tab PO 300 mg DAILY IRIS Administration Fenofibrate 145 mg 02/14/20 09:00 02/17/20 09:34 Fenofibrate Nanocrystallized 145 Mg Tab PO Not Given DAILY IRIS Fluoxetine HCl 40 mg 02/14/20 09:00 02/22/20 08:18 Fluoxetine Hcl 20 Mg Cap PO 40 mg DAILY IRIS Administration Gabapentin 1,200 mg 02/13/20 15:00 02/22/20 20:24 Gabapentin 300 Mg Cap PO 1,200 mg TID IRIS Administration Hydralazine HCl 20 mg 02/17/20 10:15 02/20/20 17:42 Hydralazine 20 Mg/Ml Vial SLOW IVP 20 mg Q4H PRN Administration SBP GREATER THAN 160 Hydrochlorothiazide 25 mg 02/19/20 09:00 02/22/20 10:11 Hydrochlorothiazide 25 Mg Tab PO 25 mg DAILY IRIS Administration Insulin Human Lispro 0 units 02/13/20 09:44 02/16/20 12:41 Humalog 300 Units/3 Ml Vial SC 2 unit .MILD SLIDING SCALE PRN Administration Mild Correctional Scale Labetalol HCl 10 mg 02/20/20 13:00 02/21/20 09:39 Labetalol Hcl 100 Mg/20 Ml Vial SLOW IVP 10 mg Q4H PRN Administration Sbp Greater Than 150 Losartan Potassium 100 mg 02/21/20 09:00 02/22/20 08:16 Losartan 25 Mg Tab PO 100 mg DAILY IRIS Administration Metoprolol Succinate 50 mg 02/20/20 21:00 02/22/20 20:23 Metoprolol Succinate Xl 50 Mg Tab PO 50 mg BID IRIS Administration Morphine Sulfate 2 mg 02/16/20 14:03 02/16/20 18:29 Morphine 2 Mg/Ml Vial SLOW IVP 2 mg Q1H PRN Administration Severe Pain (7-10) Niacin 1,000 mg 02/14/20 09:00 02/17/20 09:35 Niacin Er 500 Mg Tab PO Not Given DAILY IRIS Ondansetron HCl 4 mg 02/15/20 12:19 02/21/20 12:35 Ondansetron Pf 4 Mg/2 Ml Vial IVP 4 mg Q4H PRN Administration Nausea/Vomiting Doxycycline 50 Mg 0 each 02/21/20 09:00 02/22/20 08:14 Tab PO 1 each DAILY IRIS Administration Pioglitazone HCl 30 mg 02/14/20 09:00 02/22/20 08:14 Pioglitazone Hcl 15 Mg Tab PO 30 mg DAILY IRIS Administration Polyethylene Glycol 17 gm 02/18/20 09:30 02/21/20 11:12 Polyethylene Glycol 3350 17 Gm Packet PO 17 gm DAILYPRN PRN Administration Constipation Polyethylene Glycol 17 gm 02/21/20 09:00 02/22/20 20:25 Polyethylene Glycol 3350 17 Gm Packet PO Not Given BID IRIS Scopolamine 1.5 mg 02/21/20 09:00 02/21/20 09:33 Scopolamine 1.5 Mg/72 Hour Patch TD 1.5 mg Q3D IRIS Administration Senna/Docusate Sodium 1 tab 02/18/20 09:30 02/21/20 11:12 Senokot S 8.6-50 Mg Tab PO 1 tab BIDPRN PRN Administration Constipation Sodium Chloride 10 ml 02/12/20 22:56 02/22/20 20:24 Flush - Normal Saline 10 Ml Syringe IVF 10 ml PRN PRN Administration Saline Flush Spironolactone 50 mg 02/22/20 08:00 02/22/20 08:17 Spironolactone 25 Mg Tab PO 50 mg QAM-WM IRIS Administration - Exam General Appearance: awake alert Eye: PERRL, anicteric sclera ENT: normocephalic atraumatic, moist mucosa Neck: supple, symmetric, no JVD Respiratory: CTAB Cardiovascular: RRR Gastrointestinal: soft, non-tender, non-distended, normal bowel sounds Gastrointestinal - other findings: obese Extremities: no edema Neurological: CN's grossly intact, no focal deficits PSYCH: A&O x 3 Nephrology Results - Labs Result Diagrams: 02/23/20 05:39 02/23/20 05:39 Lab results: WBC 4.9 thou/uL (4.8-10.8) 02/23/20 05:39 Hgb 12.3 g/dL (12.0-16.0) 02/23/20 05:39 Hct 38.3 % (36.0-47.0) 02/23/20 05:39 MCV 89.1 fL (78.0-98.0) 02/23/20 05:39 Plt Count 434 thou/uL (130-400) H 02/23/20 05:39 Neutrophils % 75.4 % (42.0-75.0) H 02/14/20 08:34 Band Neuts % (Manual) 9 % (5-11) 02/23/20 05:39 ABG pH 7.42 (7.35-7.45) 02/13/20 08:30 ABG pCO2 32.9 mmHg (35.0-45.0) L 02/13/20 08:30 ABG pO2 93.6 mmHg (80.0-100.0) 02/13/20 08:30 Sodium 140 mmol/L (136-145) 02/23/20 05:39 Potassium 3.7 mmol/L (3.5-5.1) 02/23/20 05:39 Chloride 102 mmol/L (98-107) 02/23/20 05:39 Carbon Dioxide 24 mmol/L (22-29) 02/23/20 05:39 BUN 23 mg/dL (9.8-20.1) H 02/23/20 05:39 Creatinine 0.95 mg/dL (0.6-1.1) 02/23/20 05:39 Glucose 89 mg/dL (70-105) 02/23/20 05:39 Calcium 9.5 mg/dL (7.8-10.44) 02/23/20 05:39 Total Bilirubin 0.4 mg/dL (0.2-1.2) 02/12/20 21:12 AST 25 U/L (5-34) 02/12/20 21:12 ALT 16 U/L (8-55) 02/12/20 21:12 Alkaline Phosphatase 47 U/L (40-110) 02/12/20 21:12 Troponin I 0.011 ng/mL (< 0.028) 02/12/20 21:12 B-Natriuretic Peptide 389.3 pg/mL (0-100) H 02/15/20 08:06 Serum Total Protein 6.9 g/dL (6.0-8.3) 02/12/20 21:12 Albumin 3.9 g/dL (3.5-5.0) 02/12/20 21:12 Lipase 18 U/L (8-78) 02/12/20 21:12 Urine Ketones Negative mg/dL (Negative) 02/19/20 01:37 Urine Blood Negative (Negative) 02/19/20 01:37 Urine Nitrite Negative (Negative) 02/19/20 01:37 Ur Leukocyte Esterase Negative Emelyn/uL (Negative) 02/19/20 01:37 Urine RBC 0-3 HPF (0-3) 02/19/20 01:37 Urine WBC 0-3 HPF (0-3) 02/19/20 01:37 Ur Squamous Epith Cells 0-3 HPF (0-3) 02/19/20 01:37 Urine Bacteria None Seen HPF (None Seen) 02/19/20 01:37 Sodium 140 mmol/L (136-145) 02/23/20 05:39 Potassium 3.7 mmol/L (3.5-5.1) 02/23/20 05:39 Chloride 102 mmol/L (98-107) 02/23/20 05:39 Carbon Dioxide 24 mmol/L (22-29) 02/23/20 05:39 Anion Gap 18 mmol/L (10-20) 02/23/20 05:39 BUN 23 mg/dL (9.8-20.1) H 02/23/20 05:39 Creatinine 0.95 mg/dL (0.6-1.1) 02/23/20 05:39 Glucose 89 mg/dL (70-105) 02/23/20 05:39 Calcium 9.5 mg/dL (7.8-10.44) 02/23/20 05:39 Magnesium 1.8 mg/dL (1.6-2.6) 02/12/20 21:12 Albumin 3.9 g/dL (3.5-5.0) 02/12/20 21:12 Nephrology AP PN - Plan HTN: Severe with recent intracranial bleed. Hypertensive since age 20 concerning for secondary HTN. CTA abdomen showed left renal artery take off atherosclerosis which was thought not to be significant. BP has been stable but inadequate controlled. Presumed hyperaldosteronism: Primary or secondary. Obesity WAQAR Constipation. Resolved Plan Increase nifedipine to 120 mg daily Continue Losartan,spironolactone, HCTZ and metoprolol at current dose. Await PAR ratio Care plan discussed with patient and spouse at bedside
[2020-02-23] MEDS: Pioglitazone HCl 15 MG TAB PO SCH (08:53)
[2020-02-23] MEDS: Fenofibrate Nanocrystallized 145 MG TAB PO SCH (08:53)
[2020-02-23] MEDS: Hydrochlorothiazide 25 MG TAB PO SCH (08:53)
[2020-02-23] MEDS: Losartan 25 MG TAB PO SCH (08:54)
[2020-02-23] MEDS: Bupropion 150 MG XL TAB PO SCH (08:54)
[2020-02-23] MEDS: Gabapentin 300 MG CAP PO SCH ×2 (08:54→14:46)
[2020-02-23] MEDS: Spironolactone 25 MG TAB PO SCH (08:55)
[2020-02-23] MEDS: FLUoxetine HCl 20 MG CAP PO SCH (08:55)
[2020-02-23] MEDS: HYDROcodone/Acetaminophen 5/325 mg Tablet PO PRN (08:55)
[2020-02-23] MEDS: Polyethylene Glycol 3350 17 GM Packet PO SCH (08:56)
[2020-02-23] MEDS: DOXYCYCLINE 50 MG PO SCH (08:56)
[2020-02-23] MEDS ORDERED: NIFEdipine XL 60 MG TAB PO SCH (09:00)
[2020-02-23 11:38] VITALS: BP 148/80; TEMP 98.3
--- NOTE | 2020-02-23 13:37 | PDOC.DS.DS ---
Provider - Provider Date of Admission: 02/12/20 22:25 Date of Discharge: 02/23/20 Admitting Provider: Ángel Rosado MD Consultations: Nephrology (Dr. Lewis Handy), Pulmonary (Dr. Justice Carranza), Other (Neurosurgery with Dr. Bertin Bustos) Primary Care Physician: JIM NOGUEIRA MD Course - Hospital Course Hospital Course: Discharge Diagnoses: 1. Hemorrhagic stroke secondary to hypertensive emergency with vasogenic edema 2. Pulmonary edema 3. Possible pulmonary mass versus right lower lobe consolidation with effusion 4. Angiomyolipoma Brief HPI: This is a 59-year-old female with a past medical history of hyperten christina who presented to the emergency room with headache, nausea, vomiting, elevated blood pressure. Patient reported sudden worsening of severe headache with nausea and vomiting. She stated that her blood pressures were in the 140s at home after her medicines were increased by her primary care doctor. When she presented to the emergency room she did CT scan of her head which showed large right dentate nucleus hypertensive hematoma with compression of the fourth ventricle and diffuse cerebellar edema. Blood pressure was 179/88. She was started on IV steroids, Keppra, nicardipine drip and was intubated for airway protection. HOSPITAL COURSE: Acute hemorrhagic stroke secondary to hypertensive emergency with vasogenic edema: Patient was started on nicardipine drip to control her blood pressures. Neurosurgery was consulted and recommended no intervention. She was extubated on 02/14. Repeat CT scan of her head on 02/12 showed no significant change in the hemorrhagic stroke in the right cerebellar region. Follow-up CT head on 02/15 showed improvement in the size of the hemorrhage. Patient was eventually straight transferred to the stroke floor. He did have some confusion and agitation after extubation and also had resistant hypertension. Nephrology was consulted. Renal ultra sound showed no renal artery stenosis. Serum aldosterone and renin levels were pending. Patient's blood pressure eventually improved to 140 systolic on the day of discharge with increase in her nifedipine to 120 mg, spironolactone 50 mg daily and metoprool 50 mg bid. She will continue losartan at 100 mg daily and HCTZ at 25 mg daily. She had no neurolo gic deficits at the time of discharge. She was seen by physical therapy and will be [facility]. She will follow up with neurosurgery in a few weeks for consideration of a repeat CT scan of her head Pulmonary mass versus pulmonary edema with possible pneumonia: Patient was noted to have pleural effusions on her initial chest x-ray versus a mass. CT of her abdomen showed consolidation of her right lower lobe with effusion. The patient denied any cough, shortness of breath or congestion. She was not discharged on antibiotics since she was asymptomatic. She will be discharged with Lasix 20 mg daily as needed. She should consider getting a chest CT done as an outpatient further evaluation of the mass and to see if her pleural effusions/pneumonia have resolved. Echo on 02/14 showed EF of 55 to 60%. 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 Patient was aware of this diagnosis in the past Pertinent Studies: CT head 02/11: large right dentate nucleus hypertensive hematoma with compre ssion of the fourth ventricle and diffuse cerebellar/cerebral edema Chest X ray 02/11 : large right cardiophrenic opacity, possible hernia or mass. Consider chest CT CT head 02/12 : no significant change in hemorrhagic stroke in right cerebellar region. Mass effect on fourth ventrilc e unchnaged Chest Xray 02/14 : enlarging pleural effusions Chest Xray 02/15: pulmonary congestion CT head 02/15: vasogenic edema similar. Hemorrhage decreased to 4.4 x 3.2 cm in size Abdomen/Pelvis US 02/18: normal Renal US 02/18: normal CTA 02/19: complex fat density consistent with angiomyolipoma. Consolidation of right lower lobe with effusion - Labs Lab Results: 02/23/20 05:39 02/23/20 05:39 Abnormal Lab Results - Last 48 hrs 02/22/20 05:22: MCHC 30.4 L, Plt Count 456 H, MPV 6.7 L 02/23/20 05:39: BUN 23 H 02/23/20 05:39: Plt Count 434 H, MPV 6.8 L, Lymphocytes % (Manual) 15 L, Monocytes % (Manual) 11 H - Physical Exam Vitals: Vital Signs (12 hours) Temp Pulse Resp BP Pulse Ox 02/23/20 11:37 98.3 F 56 L 14 148/80 H 93 L 02/23/20 07:00 98.2 F 66 16 189/89 H 93 L 02/23/20 03:00 98.6 F 60 16 143/79 H 93 L Weight Admit Weight 299 lb Weight 275 lb 4.8 oz Most Recent Monitor Data Heart Rate from ECG 68 NIBP 148/85 NIBP BP-Mean 106 Respiration from ECG 14 SpO2 97 Physical Exam: The patient was seen and examined on the day of discharge. General: the patient is morbidly obese, no acute distress CVS: RRR, no murmurs, rubs, gallops Lungs: CTAB Abdomen: +BS, soft, nontender, nondistended Extremities: no edema Problem - Discharge Plan Plan of Treatment: Consider chest CT as an outpatient for follow-up of pleural effusion/pulmonary mass. Consider starting antibiotics if patient develops fever, cough, shortness of breath or tachycardia Follow-up with your primary care doctor in a week for further titration of blood pressure medicines - Time spent with Patient (mins): 35 Plan - Discharge Medications Prescriptions: Spironolactone [Aldactone] 50 mg PO QAM-WM #60 tab Hydrochlorothiazide 25 mg PO DAILY #30 tab NIFEdipine [Nifedipine ER] 60 mg PO DAILY #60 tablet.er Metoprolol Succinate [Toprol Xl] 50 mg PO BID #60 tab Home Medications: Medication Instructions Recorded Confirmed Type BuPROPion XL [Wellbutrin XL] 300 mg PO DAILY 02/13/20 02/13/20 History Dapagliflozin Propanediol [Farxiga] 5 mg PO DAILY 02/13/20 02/13/20 History Estradiol 2 mg PO DAILY 02/13/20 02/13/20 History FLUoxetine HCl [Fluoxetine HCl] 40 mg PO DAILY 02/13/20 02/13/20 History Fenofibrate,Micronized 134 mg PO DAILY 02/13/20 02/13/20 History [Fenofibrate] Furosemide [Lasix] 20 mg PO PRN PRN 02/13/20 02/13/20 History Gabapentin 1,200 mg PO TID 02/13/20 02/13/20 History Niacin 1,000 mg PO HS 02/13/20 02/20/20 History Pioglitazone HCl [Actos] 30 mg PO DAILY 02/13/20 02/13/20 History Potassium Chloride 10 meq PO DAILY 02/13/20 02/13/20 History metFORMIN [Glucophage] 1,000 mg PO BID 02/13/20 02/13/20 History Acetaminophen 650 mg PO Q6H PRN 02/20/20 02/20/20 History Albuterol Sulfate [Proair 2 puff IH Q6H PRN 02/20/20 02/20/20 History Digihaler] Budesonide-Formoterol [Symbicort 1 puff INH BID 02/20/20 02/20/20 History 160-4.5] Cephalexin [Keflex] 1 cap PO HS 02/20/20 02/20/20 History Fluticasone Propionate [Flonase 1 spray EA NARE DAILY PRN 02/20/20 02/20/20 History Nasal [place]] Ketorolac Tromethamine [Toradol] 10 mg PO BID PRN 02/20/20 02/20/20 History Losartan [Cozaar] 100 mg PO DAILY 02/20/20 02/20/20 History Magnesium Oxide 2 tab PO TID 02/20/20 02/20/20 History Terazosin HCl [Hytrin] 1 cap PO HS 02/20/20 02/20/20 History Hydrochlorothiazide 25 mg PO DAILY #30 tab 02/23/20 Rx Metoprolol Succinate [Toprol Xl] 50 mg PO BID #60 tab 02/23/20 Rx NIFEdipine [Nifedipine ER] 60 mg PO DAILY #60 tablet.er 02/23/20 Rx Spironolactone [Aldactone] 50 mg PO QAM-WM #60 tab 02/23/20 Rx Allergies: No Known Allergies Allergy (Unverified 02/12/20 22:05) - Follow up [facility] JIM NOGUEIRA MD [Primary Care Provider] - Ole Saucedo MD [Active] - 2-3 Weeks Saw Brewer MD [Active] - 2-3 Weeks Disposition: REHABILITATION INPATIENT Quality - Care Measures CORE MEASURES:: N/A
--- NOTE | 2020-02-23 15:54 | EKG ---
Test Reason : Blood Pressure : / mmHG Vent. Rate : 067 BPM Atrial Rate : 067 BPM P-R Int : 198 ms QRS Dur : 106 ms QT Int : 456 ms P-R-T Axes : 044 028 013 degrees QTc Int : 481 ms Normal sinus rhythm Cannot rule out Anterior infarct , age undetermined Abnormal ECG Confirmed by TONO FREEMAN ([id number]), managing editor KATHERINE CHANG ([id number]) on 02/23/2020 3:54:26 PM Referred By: Confirmed By:TONO FREEMAN
== END 2020-02-23 16:30 | DRG 64 ==
LOC: ERS 20:21 → CCU 22:25 → 2SE 02-16 23:28
PROVIDERS: ADMIT Internal Medicine; ATTEND Internal Medicine
PROC: 0BH17EZ Insertion of Endotracheal Airway into Trachea, Via Natural or Artificial Opening (ICD-10-PCS; principal; 2020-02-12)
PROC: 5A1945Z Respiratory Ventilation, 24-96 Consecutive Hours (ICD-10-PCS; 2020-02-12)
PROC: 06HY33Z Insertion of Infusion Device into Lower Vein, Percutaneous Approach (ICD-10-PCS; 2020-02-12)
PROC: 0T9B70Z Drainage of Bladder with Drainage Device, Via Natural or Artificial Opening (ICD-10-PCS; 2020-02-12)
DX: I61.4 Nontraumatic intracerebral hemorrhage in cerebellum (principal); G93.6 Cerebral edema; G93.5 Compression of brain; J18.9 Pneumonia, unspecified organism; J96.00 Acute respiratory failure, unspecified whether with hypoxia or hypercapnia; Z68.41 Body mass index [BMI] 40.0-44.9, adult; J90 Pleural effusion, not elsewhere classified; I16.1 Hypertensive emergency; G93.40 Encephalopathy, unspecified; J81.1 Chronic pulmonary edema; Z20.828 Contact with and (suspected) exposure to other viral communicable diseases; Z23 Encounter for immunization; I10 Essential (primary) hypertension; E11.9 Type 2 diabetes mellitus without complications; E66.01 Morbid (severe) obesity due to excess calories; G47.33 Obstructive sleep apnea (adult) (pediatric); E26.9 Hyperaldosteronism, unspecified; M19.90 Unspecified osteoarthritis, unspecified site; D17.9 Benign lipomatous neoplasm, unspecified; K59.00 Constipation, unspecified; Z96.651 Presence of right artificial knee joint; Z79.82 Long term (current) use of aspirin; Z79.51 Long term (current) use of inhaled steroids; Z79.84 Long term (current) use of oral hypoglycemic drugs; Z79.899 Other long term (current) drug therapy; Z78.1 Physical restraint status; Z90.49 Acquired absence of other specified parts of digestive tract
CPT/HCPCS: 31500; 36415; 36416; 36556; 51702; 70450; 71045; 74174; 76770; 80048; 80053; 80306; 80307; 81001; 81003; 81015; 82088; 82805; 83036; 83690; 83735; 83880; 83930; 84244; 84484; 85007; 85025; 85027; 87635; 90471; 90732; 93005; 93306; 93976; 94002; 94003; 94660; 96365; 96366; 96367; 96368; 96375; 99292; G0009; J0360; J0696; J1100; J1953; J2060; J2150; J2250; J2270; J2405; J2550; J2704; J3010; J3490; J7050; J7799; Q9967; U0003

== ENCOUNTER 2020-05-01 15:36 | Outpatient (CLI) | payer BC | END 2020-05-01 15:37 | disposition home or self-care (01) | LOC: BICCT 15:36 | PROVIDERS: ATTEND Neurological Surgery | DX: I61.9 Nontraumatic intracerebral hemorrhage, unspecified (principal); G93.89 Other specified disorders of brain | CPT/HCPCS: 70450 ==

== ENCOUNTER 2020-07-01 14:44 | Outpatient (CLI) | payer BC | END 2020-07-01 14:45 | disposition home or self-care (01) | LOC: BICULT 14:44 | PROVIDERS: ATTEND Internal Medicine Nephrology | DX: I15.0 Renovascular hypertension (principal) | CPT/HCPCS: 76770; 93975 ==